=== PATIENT | female | born 1960 | race Caucasian/White ===

== ENCOUNTER → 2017-11-04 | Outpatient (CLI) | payer OTHER ==
[~2017-11-04] MED LIST: BUSP5TAB59 PO; CYCL10TA6 PO; EFF75 PO; FLNIN NAE; GABA-113 PO; PANT40TA PO; SNM/25100 PO; VENL150C56 PO
== END | disposition home or self-care (01) ==
LOC: C.LABPBG 12:20
PROVIDERS: ATTEND Internal Medicine Cardiovascular Disease
DX: Z00.00 Encounter for general adult medical examination without abnormal findings (principal); I34.1 Nonrheumatic mitral (valve) prolapse

== ENCOUNTER → 2017-11-20 | Outpatient (CLI) | payer OTHER ==
[2017-11-20 17:03] LABS: ALBUMIN 3.9 gm/dl (3.4-5.0); TOTAL PROTEIN 6.8 gm/dl (6.4-8.2)
[2017-11-20 17:05] LABS: ALBUMIN 3.8 gm/dl (3.4-5.0); ALT/SGPT 32 U/L (12-78); AST/SGOT 29 U/L (15-37); BLOOD UREA NITROGEN 22 mg/dl (7-18); CALCIUM 8.4 mg/dl (8.5-10.1); CARBON DIOXIDE 30 mmol/L (21-32); CREATININE 0.89 mg/dl (0.60-1.20); GLUCOSE 115 mg/dl (70-99); LIPASE 215 U/L (73-393); POTASSIUM 4.5 mmol/L (3.5-5.1); SODIUM 142 mmol/L (136-145)
[2017-11-20 17:08] LABS: ALKALINE PHOSPHATASE 49 U/L (45-117); TOTAL PROTEIN 6.8 gm/dl (6.4-8.2)
== END | disposition home or self-care (01) ==
LOC: C.LABPBG 14:12
PROVIDERS: ATTEND Dermatology
DX: R63.6 Underweight (principal); R10.84 Generalized abdominal pain; R63.4 Abnormal weight loss; Z92.29 Personal history of other drug therapy

== ENCOUNTER 2018-11-15 20:26 | Inpatient (IN) ==
[2018-11-15] MEDS ORDERED: LEVALBUTEROL HCL 1.25 MG/3 ML NEB NEB STA (21:42)
[2018-11-15] MEDS ORDERED: methylPREDNISolone 125 MG/2 ML VIAL IV STA (21:44)
[2018-11-15 22:17] LABS: iSTAT Creatinine 1.2 mg/dl (0.6-1.3); iSTAT Hemoglobin 9.9 g/dl (12.0-16.0); iSTAT Ionized Calcium 1.02 mmol/l (1.12-1.32); iSTAT Potassium 3.8 mEq/L (3.3-5.0)
[2018-11-15 22:18] LABS: Basophils # (auto) 0.01 K/uL (0-0.2); Basophils % (auto) 0.1 %; Hematocrit (blood only) 30.1 % (37-47); Hemoglobin 9.2 g/dL (12.0-16.0); Immature Granulocytes # (auto) 0.05 K/uL (0.00-0.02); Immature Granulocytes % (auto) 0.4 %; Lymphocytes # (auto) 0.73 K/uL (1.2-3.4); Lymphocytes % (auto) 5.6 %; Mean Corpuscular Hgb Conc 30.6 g/dL (32-36); Mean Corpuscular Volume 78.6 fL (80-100); Mean Platelet Volume 9.5 fL (7.4-10.4); Monocytes # (auto) 0.95 K/uL (0.11-0.59); Monocytes % (auto) 7.2 %; Neutrophils # (auto) 11.38 K/uL (1.4-6.5); Neutrophils % (auto) 86.7 %; Platelet Count 196 K/uL (130-400); RDW Coefficient of Variation 18.4 % (11.5-14.5); RDW Standard Deviation 51.9 fL (36.4-46.3); Red Blood Count 3.83 M/uL (4.2-5.4); White Blood Count 13.12 K/uL (4.8-10.8)
--- NOTE | 2018-11-15 22:34 | XRay Report ---
XR chest 1V portable HISTORY: 58 years-old Female Chest Pain acute atypical chest pain COMPARISON: CTA chest 06/29/2013 TECHNIQUE: Portable AP view of the chest FINDINGS: Cardiac silhouette is enlarged, unchanged. Prior median sternotomy with cardiac valvular prosthesis. There is no pneumothorax. Severe emphysema with chronic interstitial coarsening and hyperinflation. T race left pleural effusion. Patchy alveolar opacities are noted about the left midlung and bilateral lung bases, left greater than right. No overt pulmonary edema. Degenerative changes of the shoulders and spine. IMPRESSION: 1. Patchy bibasilar and left midlung alveolar opacities suggest multifocal pneumonia. Follow-up imagi ng to document resolution is recommended. 2. Emphysema. The above report was generated using voice recognition software. It may contain grammatical, syntax o r spelling errors. Electronically signed by: Harinder Lorenzo M.D. 11/15/2018 10:33 PM
[2018-11-15 22:38] LABS: Alanine Aminotransferase 22 U/L (12-78); Albumin Level 3.1 gm/dl (3.4-5.0); Aspartate Aminotransferase 31 U/L (15-37); BUN Creatinine Ratio 22.6 (10-20); Blood Urea Nitrogen 27 mg/dl (7-18); Calcium 8.3 mg/dl (8.5-10.1); Carbon Dioxide 25 mmol/L (21-32); Chloride 101 mmol/L (98-107); Creatinine Clr Calc Pharmacy 34.4 ml/min; Est GFR (African American) 57.7; Est GFR (Non-African American) 49.8; Glucose 78 mg/dl (70-99); Potassium 3.7 mmol/L (3.5-5.1); Sodium 135 mmol/L (136-145)
[2018-11-15 22:44] LABS: Albumin Globulin Ratio 0.8 (0.9-2); Alkaline Phosphatase 98 U/L (45-117); Bilirubin,Total 0.9 mg/dl (0.2-1); Creatine Kinase 335 U/L (26-192); Creatine Kinase MB 3.1 ng/ml (0.5-3.6); Globulin 3.7 gm/dl (2.5-4.0); Total Protein 6.8 gm/dl (6.4-8.2); Troponin I < 0.015 ng/ml (0-0.045)
[2018-11-15] MEDS ORDERED: PIPERACILL/TAZOBAC CONSULT ACTIVE PRN (23:19)
[2018-11-15] MEDS ORDERED: PIPERACILLIN/TAZOBACTAM 4.5 GM/120 ML BAG IV ONE (23:19)
[2018-11-15] MEDS ORDERED: LEVOFLOXACIN/D5W 750 MG/150 ML BAG IV STA (23:19)
[2018-11-15] MEDS ORDERED: ONDANSETRON INJ 2 MG/ML 2 ML VIAL IV STA (23:23)
[2018-11-15] MEDS ORDERED: OPTIRAY 320 125ml IV PRN (23:37)
[2018-11-15] MEDS: HYDROmorphone INJ 0.5 MG/0.5 ML SYR IV PRN (23:46)
[2018-11-16 00:20] LABS: NT Pro B Type Natriuretic Pept 1319 pg/ml (0-900)
--- NOTE | 2018-11-16 02:20 | History & Physical Report ---
Date of Service November 16, 2018 Assessment & Plan (1) Pneumonia: Afebrile, hemodynamically stable, minimal O2 requirement. CXR suggestive of multifocal PNA -Admit to medical floor -Check influenza -Follow culture results -Ceftriaxone and Azithromycin -Supplemental O2 as needed -Encourage incentive spirometry -Mucinex BID PRN -DuoNebs and Albuterol PRN. Patient may benefit from outpatient PFTs. Smoking cessation counseling -Morphine PRN CW pain Present on Admission?: Yes (2) H/O mitral valve replacement with mechanical valve: Patient on Coumadin. She follows with Dr. Batista -Check INR now and daily -Continue home Coumadin, goal. 2.5 - 3.5 Present on Admission?: Yes (3) Multiple sclerosis: Stable. Patient reports worsening muscle cramps -Treat underlying infection as above -IVF and electrolyte repletion where needed -Continue Baclofen -Outpatient Neurology followup Present on Admission?: Yes (4) Depression: Chronic. Stable -Continue Venlafaxine (5) Irritable bowel syndrome: Chronic. Stable -Continue Bentyl F/E/N - NSS at 80mL/hr x 2 liters. Cr=1.2 from baseline of 0.8. Repeat chemistry in AM. Electrolyte repletion as needed - Ca gluconate x 1 gm. Regular diet as tolerated Ppx - Coumadin for mechanical valve. Continue Ranitidine at home dose Code - Full Dispo - Med Surge History of Present Illness Chief Complaint: Pneumonia Primary Care Provider: Rylie Richardson DO Didi Gant is a 58yo C female with history of COPD, GERD, MS, breast cancer presenting with pneumonia. Patient reports URI symptoms over the last week to include cough productive for yellow/green sputum and shortness of breath. She was seen by her PCP on 09 November and was prescribed Doxycycline, Prednisone and Albuterol. Patient states that her symptoms did not improve. She continues to be febrile, last fever yesterday 101. She is also complaining of severe left sided pain as well as muscle spasms. ER Course: Dilaudid 0.5mg, Xopenex, Levaquin, Solumedrol 125mg, Zofran 4mg, Zosyn Allergies Allergy/AdvReac Type Severity Reaction Status Date / Time No Known Allergies Allergy Verified 11/16/18 01:38 Home Medications Home Medications Medication Instructions Recorded Confirmed Type albuterol sulfate [Ventolin HFA] 2 puff INHALATION QID PRN 11/16/18 11/16/18 History baclofen 10 mg PO BID PRN 11/16/18 11/16/18 History dicyclomine 10 mg PO QID PRN 11/16/18 11/16/18 History gabapentin 100 mg PO HS 11/16/18 11/16/18 History gabapentin 300 mg PO HS 11/16/18 11/16/18 History mirtazapine 15 mg PO DAILY 11/16/18 11/16/18 History oxycodone 5 mg PO TID PRN 11/16/18 11/16/18 History ranitidine HCl 150 mg PO QPM 11/16/18 11/16/18 History venlafaxine 300 mg PO QAM 11/16/18 11/16/18 History warfarin [Jantoven] 4 mg PO 3XWK 11/16/18 11/16/18 History warfarin [Jantoven] 6 mg PO 4XWK 11/16/18 11/16/18 History Past Med/Surg History Medical History Pancreatitis (Chronic) Breast cancer (Resolved) Abdominal pain (Acute) Dehydration (Acute) Intractable nausea and vomiting (Acute) SOB (shortness of breath) (Acute 06/29/13) Fibromyalgia GERD (gastroesophageal reflux disease) Multiple sclerosis Surgical History H/O mastectomy (Resolved) Previous section (Resolved) H/O mitral valve replacement mechanical Family History Other Breast cancer Social History Feels Safe at Home: Yes Smoking Status: Current every day smoker Hx Alcohol Use: No Hx Substance Use: No Review of Systems Review of Systems: All systems reviewed & are unremarkable except as noted in HPI & below Patient complains of muscle spasms Physical Exam Physical Exam: General: pleasant female, appears older than stated age, patient resting comfortably, NAD, non-toxic in appearance, AA&O x 4 Skin: warm, dry, intact, no rashes or lesions, well healed sternotomy scar HEENT: NC/AT, PERRL, EOMI, anicteric sclera, conjunctiva without injection, e xternal ear normal to inspection and nontender, nares patent, moist mucus membranes, dentition intact, no oropharyngeal lesions, neck supple, trachea midline, no LAD, no thyromegaly, no JVD Heart: +S1/S2, regular, no m/r/g, +mechanical click, +tenderness with palpation of left paraspinal musculature and flank Lungs: equal air entry bilaterally, no rales/rhonchi/wheezes Abd: +BS, soft, NT/ND, no masses/organomegaly/ascites Ext: warm, 2+ pulses in UE/LE bilaterally, no clubbing/cyanosis or edema Neuro: nonfocal, patient AA&O x 4, speech intact, no facial droop, moving all extremities on command with equal strength 5/5 Results & Data Vital Signs (Past 12 Hours) Vital Signs Temp Pulse Pulse Resp BP BP Pulse Ox 11/16/18 00:16 95 11/16/18 00:13 88 20 130/74 95 11/15/18 21:55 18 99 11/15/18 20:47 37.5 C 94 H 18 106/60 86 L Laboratory Results Lab Results 11/15/18 11/15/18 11/15/18 Range/Units 21:53 21:53 22:02 WBC 13.12 H (4.8-10.8) K/uL RBC 3.83 L (4.2-5.4) M/uL Hgb 9.2 L (12.0-16.0) g/dL POC Hgb 9.9 L (12.0-16.0) g/dl Hct 30.1 L (37-47) % POC Hct 29 L (37-47) % MCV 78.6 L (80-100) fL MCH 24.0 L (25-34) pg MCHC 30.6 L (32-36) g/dL RDW Std Deviation 51.9 H (36.4-46.3) fL RDW Coeff of Joseph 18.4 H (11.5-14.5) % Plt Count 196 (130-400) K/uL MPV 9.5 (7.4-10.4) fL Immature Gran % (Auto) 0.4 % Neut % (Auto) 86.7 % Lymph % (Auto) 5.6 % [place] % (Auto) 7.2 % Eos % (Auto) 0.0 % Baso % (Auto) 0.1 % Immature Gran # (Auto) 0.05 H (0.00-0.02) K/uL Neut # (Auto) 11.38 H (1.4-6.5) K/uL Lymph # (Auto) 0.73 L (1.2-3.4) K/uL [place] # (Auto) 0.95 H (0.11-0.59) K/uL Eos # (Auto) 0.00 (0-0.5) K/uL Baso # (Auto) 0.01 (0-0.2) K/uL POC Sodium 135 (135-144) mEq/L Sodium 135 L (136-145) mmol/L POC Potassium 3.8 (3.3-5.0) mEq/L Potassium 3.7 (3.5-5.1) mmol/L POC Chloride 99 L (101-112) mEq/L Chloride 101 (98-107) mmol/L Carbon Dioxide 25 (21-32) mmol/L POC Total CO2 24 (24-31) mEq/l Anion Gap 9.0 (3-11) POC Anion Gap 17.0 (16-25) mmol/L POC BUN 26 H (7-18) mg/dl BUN 27 H (7-18) mg/dl Creatinine 1.20 (0.6-1.2) mg/dl POC Creatinine 1.2 (0.6-1.3) mg/dl Est Cr Clr Drug Dosing 34.4 ml/min Est GFR ( Amer) 57.7 Est GFR (Non-Af Amer) 49.8 BUN/Creatinine Ratio 22.6 H (10-20) Glucose 78 (70-99) mg/dl POC Glucose (other) 85 (70-99) mg/dl Calcium 8.3 L (8.5-10.1) mg/dl POC Ioniz Calcium José 1.02 L (1.12-1.32) mmol/l Total Bilirubin 0.9 (0.2-1) mg/dl AST 31 (15-37) U/L ALT 22 (12-78) U/L Alkaline Phosphatase 98 (45-117) U/L Total Creatine Kinase 335 H (26-192) U/L CK-MB (CK-2) 3.1 (0.5-3.6) ng/ml CK/CKMB % Calc 0.9 (0-3.0) Troponin I < 0.015 (0-0.045) ng/ml NT-Pro-B Natriuret Pep 1319 H (0-900) pg/ml Total Protein 6.8 (6.4-8.2) gm/dl Albumin 3.1 L (3.4-5.0) gm/dl Globulin 3.7 (2.5-4.0) gm/dl Albumin/Globulin Ratio 0.8 L (0.9-2) Lipase 144 (73-393) U/L Diagnostic Findings XR chest 1V portable HISTORY: 58 years-old Female Chest Pain acute atypical chest pain COMPARISON: CTA chest 06/29/2013 TECHNIQUE: Portable AP view of the chest FINDINGS: Cardiac silhouette is enlarged, unchanged. Prior median sternotomy with cardiac valvular prosthesis. There is no pneumothorax. Severe emphysema with chronic interstitial coarsening and hyperinflation. Trace left pleural effusion. Patchy alveolar opacities are noted about the left midlung and bilateral lung bases, left greater than right. No overt pulmonary edema. Degenerative changes of the shoulders and spine. IMPRESSION: 1. Patchy bibasilar and left midlung alveolar opacities suggest multifocal pneumonia. Follow-up imaging to document resolution is recommended. 2. Emphysema. The above report was generated using voice recognition software. It may contain grammatical, syntax or spelling errors. Electronically signed by: Harinder Lorenzo M.D. 11/15/2018 10:33 PM Dictated: 11/15/182230 Transcribed: 11/15/182230 Code Status & VTE Plan Code Status FULL CODE VTE Prophylaxis Plan VTE Prophylaxis will be ordered: Yes (1) Pneumonia Laterality: left Lung location: unspecified part of lung Pneumonia type: due to unspecified organism Qualified Code(s): J18.9 - Pneumonia, unspecified organism (2) Irritable bowel syndrome Irritable bowel syndrome type: unspecified Qualified Code(s): K58.9 - Irritable bowel syndrome without diarrhea
[2018-11-16] MEDS ORDERED: HYDROmorphone INJ 0.5 MG/0.5 ML SYR IV STA (02:56)
[2018-11-16] MEDS: HYDROmorphone INJ 0.5 MG/0.5 ML SYR IV PRN (03:02)
[2018-11-16] MEDS ORDERED: DICYCLOMINE HCL 10 MG CAP PO PRN (03:21)
[2018-11-16] MEDS ORDERED: BACLOFEN 10 MG TAB PO PRN (03:21)
[2018-11-16] MEDS ORDERED: ALBUTEROL 0.5% NEB SOLN 2.5 MG/0.5 ML VIAL NEB PRN (03:21)
[2018-11-16] MEDS ORDERED: DOCUSATE SODIUM 100 MG CAP PO PRN (03:21)
[2018-11-16] MEDS ORDERED: CALCIUM GLUCONATE 10% 1,000 MG in SODIUM CHLORIDE 0.9% 50 ML IV ONE (03:45)
[2018-11-16] MEDS ORDERED: AZITHROMYCIN 500 MG in DEXTROSE 5% 250 ML IV ONE (03:45)
[2018-11-16] MEDS: ALBUT/IPRATROP 3MG/0.5MG NEB 3 ML VIAL NEB SCH ×6 (04:10→23:01)
[2018-11-16] MEDS: SODIUM CHLORIDE 0.9% 1000ML 1,000 ML IV SCH ×2 (04:14→17:16)
[2018-11-16] MEDS: OXYCODONE HCL IR 5 MG TAB (IMMEDIATE RELEASE) PO PRN ×4 (04:33→21:52)
[2018-11-16 04:54] LABS: Prothrombin Time > 90.0 Seconds (9.0-12.0)
[2018-11-16 04:59] LABS: Magnesium 1.6 mg/dl (1.8-2.4); Phosphorus 3.1 mg/dl (2.5-4.9)
[2018-11-16 05:02] LABS: INR > 10.4 (0.9-1.1)
[2018-11-16] MEDS: cefTRIAXone SODIUM 1,000 MG in DEXTROSE 5% 50 ML IV SCH (05:54)
--- NOTE | 2018-11-16 06:19 | CT Scan Report ---
CT angio chest PE protocol CT DOSE: 229.40 mGy.cm HISTORY: Dyspnea Chest Pain, eval for PE TECHNIQUE: Multiaxial CT images of the chest were performed following the intravenous administration of contrast to evaluate the pulmonary arteries. Maximal intensity projection images were also obtaine d. A dose lowering technique was utilized adhering to the principles of ALARA. COMPARISON STUDY: 06/29/2013 FINDINGS: Unchanged enlargement of the right thyroid. Mild displacement of the trachea to the left al so unchanged. Moderate office chronic change thoracic aorta with no evidence for aneurysm or dissection. Pulmonary vasculature enhances appropriately. No filling defect. Diffuse parenchymal infiltrative dana nge throughout the left mid and lower lung as well as right middle lobe and to lesser extent right lo wer lobe. IMPRESSION: 1. Study is negative for pulmonary embolus. 2. Diffuse bilateral parenchymal infiltrative change. 3. Moderate emphysematous change. The above report was generated using voice recognition software. It may contain grammatical, syntax or spelling errors. Electronically signed by: Casey Carson M.D. 11/16/2018 6:18 AM
[2018-11-16] MEDS: VENLAFAXINE HCL XR 150 MG CAPXR PO SCH (08:22)
[2018-11-16] MEDS: guaiFENesin 600 MG TABCR PO SCH ×2 (08:22→21:40)
[2018-11-16] MEDS: MoRPHine SULFATE 2 MG/ML CARP IV PRN ×3 (08:22→19:47)
[2018-11-16] MEDS ORDERED: WARFARIN SOD 6 MG TAB PO SCH (16:00)
[2018-11-16] MEDS ORDERED: MoRPHine SULFATE 2 MG/ML CARP IV STA (16:47)
--- NOTE | 2018-11-16 20:44 | History & Physical Bridge Note ---
Date of Service November 16, 2018 History & Physical Bridge Note Pt seen this afternoon initially. States she is having L lower rib/chest pain. States she also has L sided back pain "for years". She has seen neuro, chiro, "everyone" and it is always present. She states that she cannot lie on this part of her back, even at the dentist. She does feel that she is overall better than [employer]. She is not SOB. Her cough is better. She is tired after being in the ED until early this AM. She has been tolerating PO without issue. Pt seemed overall pleased with her current status. Discussed using a heating pad to help with the L lower rib/chest pain that is likely related to the PNA. Pt was happy with this plan. Called by nursing later in the day as pt feels that "no one is taking her pain seriously". Heating pad was unable to be sent up from utility so that has not been applied. Pt was given morphine which she states only lasts about 20-30 minutes. Pt is threatening to leave AMA. I returned to pt's room at that time and pt informs me that she was crying all day due to her pain. She states she has been having pain into her legs all day and that she has so much pain that she cannot even watch television. She states that everyone is labeled an opioid abuser now and so "I can't get my pain treated, even when I am in the hospital". She was offered an additional morphine dose and her PRN baclofen, which she had not had yet today, and she states "I can go home and take 20 baclofen. 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 I can take this IV out and just leave when I want to." Again offered an additional morphine dose plus baclofen plus heating pad. Discussed risks of not continuing with abx and O2. Pt is agreeable to stay "for now".
[2018-11-16] MEDS: NICOTINE 21 MG/24 HR TDSY TD SCH (21:37)
[2018-11-16] MEDS: MoRPHine SULFATE 4 MG/ML 1 ML CARP\\VIAL IV PRN (21:38)
[2018-11-16] MEDS: GABAPENTIN 100 MG CAP PO SCH (21:39)
[2018-11-16] MEDS: MIRTAZAPINE TAB 15 MG TAB PO SCH (21:40)
[2018-11-16] MEDS: GABAPENTIN 300 MG CAP PO SCH (21:40)
--- NOTE | 2018-11-17 01:27 | Emergency Department Note ---
Entered by Dean Turcios acting as a scribe for History of Present Illness General Chief complaint: Illness Stated complaint: ILLNESS, NAUSEA Time Seen by Provider: 11/15/18 21:33 Source: patient History of Present Illness Provider complaint: Respiratory problems Onset (ago): week(s) 2 Location: chest Radiation: non-radiation Pain Consistency: + constant Maximum Pain Intensity: 5 Relieved By: + none Exacerbated By: + none Associated symptoms: + chest pain, + cough and + shortness of breath The patient is a 58 year old female who presents to the Emergency Room with complaints of constant respiratory problems that started about 2 weeks ago. She is currently short of breath and has a cough. She also has some rib/chest pain that is worse when coughing. She was diagnosed with bronchitis 2 weeks ago when the symptoms first began and was prescribed Doxycycline and Prednisone. She has finished both of these medications but her symptoms persist. She is currently on oxygen but states she typically does not wear oxygen at home. Home Medications Home Medications Medication Instructions Recorded Confirmed Type albuterol sulfate [Ventolin HFA] 2 puff INHALATION QID PRN 11/16/18 11/16/18 History baclofen 10 mg PO BID PRN 11/16/18 11/16/18 History dicyclomine 10 mg PO QID PRN 11/16/18 11/16/18 History gabapentin 100 mg PO HS 11/16/18 11/16/18 History gabapentin 300 mg PO HS 11/16/18 11/16/18 History mirtazapine 15 mg PO DAILY 11/16/18 11/16/18 History oxycodone 5 mg PO TID PRN 11/16/18 11/16/18 History ranitidine HCl 150 mg PO QPM 11/16/18 11/16/18 History venlafaxine 300 mg PO QAM 11/16/18 11/16/18 History warfarin [Jantoven] 4 mg PO [id number] 11/16/18 11/16/18 History warfarin [Jantoven] 6 mg PO [id number] 11/16/18 11/16/18 History Allergies Allergy/AdvReac Type Severity Reaction Status Date / Time No Known Allergies Allergy Verified 11/16/18 01:38 Past Med/Surg History Social History Preferred Language: Bolivian Communication Ability: Effective Qa Architect Required: No Beliefs That Will Affect Care: None Current Living Situation: Family Other Information That Helps Us Care for You: No Feels Safe at Home: Yes Safety Concerns: Feels Safe At This Time Smoking Status: Current every day smoker Tobacco Type: cigarettes Do You Dip or Chew Tobacco: No Second Hand Exposure: No Tobacco Cessation Education Requested by Patient: No Hx Alcohol Use: No Hx Substance Use: No Review of Systems See HPI for pertinent positives & negatives. and A total of 10 systems reviewed and were otherwise negative Physical Exam Vital Signs Vital Signs - 24 hr 11/16/18 02:48 11/16/18 03:20 11/16/18 03:47 Temperature 37.8 C H 36.6 C Temperature Source Oral Oral Pulse Rate 78 Pulse Rate [Left Brachial] 83 Pulse Rate [Right Finger] Pulse Rhythm [Left Brachial] Regular Pulse Strength [Left Brachial] Normal Respiratory Rate 18 Respiratory Effort / Characteristics SOB on Exertion Non-Labored Spontaneous Respiratory Depth Normal Normal Respiratory Pattern Regular Regular Blood Pressure 106/75 Blood Pressure [Left Arm] 113/65 Blood Pressure Mean [Left Arm] 81 Blood Pressure Position [Left Arm] Lying Pulse Oximetry 95 90 Oxygen Delivery Method Nasal Cannula Nasal Cannula Nasal Cannula Oxygen Flow Rate 2 3 2 11/16/18 04:10 11/16/18 06:57 11/16/18 07:37 Temperature Temperature Source Pulse Rate Pulse Rate [Left Brachial] Pulse Rate [Right Finger] 65 85 Pulse Rhythm [Left Brachial] Pulse Strength [Left Brachial] Respiratory Rate 18 18 Respiratory Effort / Characteristics Non-Labored Spontaneous Spontaneous Short of Breath Non-Labored Spontaneous Respiratory Depth Normal Respiratory Pattern Regular Blood Pressure Blood Pressure [Left Arm] Blood Pressure Mean [Left Arm] Blood Pressure Position [Left Arm] Pulse Oximetry 96 95 Oxygen Delivery Method Nasal Cannula Nasal Cannula Nasal Cannula Oxygen Flow Rate 3 3 2 11/16/18 07:54 11/16/18 11:28 11/16/18 15:13 Temperature 36.5 C Temperature Source Oral Pulse Rate Pulse Rate [Left Brachial] 85 83 89 Pulse Rate [Right Finger] Pulse Rhythm [Left Brachial] Pulse Strength [Left Brachial] Respiratory Rate 17 18 16 Respiratory Effort / Characteristics Non-Labored Spontaneous Non-Labored Spontaneous Respiratory Depth Respiratory Pattern Blood Pressure Blood Pressure [Left Arm] 98/59 L Blood Pressure Mean [Left Arm] 72 Blood Pressure Position [Left Arm] Lying Pulse Oximetry 95 88 L 92 Oxygen Delivery Method Nasal Cannula Room Air Nasal Cannula Oxygen Flow Rate 3 3 11/16/18 15:48 11/16/18 19:53 11/16/18 22:55 Temperature 37.0 C 37.1 C Temperature Source Oral Oral Pulse Rate Pulse Rate [Left Brachial] 96 H Pulse Rate [Right Finger] 88 93 H Pulse Rhythm [Left Brachial] Pulse Strength [Left Brachial] Respiratory Rate 18 18 18 Respiratory Effort / Characteristics Non-Labored Spontaneous Respiratory Depth Respiratory Pattern Blood Pressure Blood Pressure [Left Arm] 90/54 L 94/58 L Blood Pressure Mean [Left Arm] 66 70 Blood Pressure Position [Left Arm] Lying Lying Pulse Oximetry 92 94 86 L Oxygen Delivery Method Nasal Cannula Nasal Cannula Nasal Cannula Oxygen Flow Rate 2 2 2.5 11/16/18 23:03 11/16/18 23:57 11/17/18 01:20 Temperature Temperature Source Pulse Rate Pulse Rate [Left Brachial] 100 H Pulse Rate [Right Finger] Pulse Rhythm [Left Brachial] Pulse Strength [Left Brachial] Respiratory Rate 14 Respiratory Effort / Characteristics Non-Labored Spontaneous Non-Labored Spontaneous SOB on Exertion Non-Labored Respiratory Depth Normal Normal Respiratory Pattern Regular Regular Blood Pressure Blood Pressure [Left Arm] Blood Pressure Mean [Left Arm] Blood Pressure Position [Left Arm] Pulse Oximetry 88 L Oxygen Delivery Method Nasal Cannula Nasal Cannula Nasal Cannula Oxygen Flow Rate 2 2 2 11/17/18 01:25 Temperature Temperature Source Pulse Rate Pulse Rate [Left Brachial] Pulse Rate [Right Finger] Pulse Rhythm [Left Brachial] Pulse Strength [Left Brachial] Respiratory Rate Respiratory Effort / Characteristics Respiratory Depth Respiratory Pattern Blood Pressure Blood Pressure [Left Arm] Blood Pressure Mean [Left Arm] Blood Pressure Position [Left Arm] Pulse Oximetry 97 Oxygen Delivery Method Nasal Cannula Oxygen Flow Rate 2 GENERAL: Awake, alert, cachectic-appearing, in no distress HENT: Normocephalic, atraumatic. Oropharynx unremarkable. EYES: Normal conjunctiva. Sclera non-icteric. NECK: Supple. No nuchal rigidity. FROM. No masses. RESPIRATORY: Bilateral wheezing present. No rales. Normal respiratory effort. CARDIAC: Normal rate. Normal rhythm. No murmurs. No rubs. Extremities warm and well perfused. Pulses equal. No JVD. CHEST: Tender to the left chest wall. GI: Soft, non-distended. No tenderness to palpation. No rebound or guarding. No masses. RECTAL: Deferred. MUSCULOSKELETAL: Atraumatic. Chest examination reveals no tenderness. The back is symmetrical on inspection without obvious abnormality. There is no CVA tenderness to palpation. No joint edema. LOWER EXTREMITIES: Calves are equal size bilaterally and non-tender. No edema. No discoloration. NEURO: Normal sensorium. No sensory or motor deficits noted. Course 2136: The patient was evaluated in room B12B, and a complete history and physical examination were performed. 2350: I updated the patient and family on results and discussed the treatment plan with them. 0002: I spoke to Dr. Samson [facility] Hospitalist about the patient's case and she is going to accept her for further evaluation. Consultations Consultation #1: I spoke to Dr. Samson [facility] Hospitalist about the patient's case and she is going to accept her for further evaluation. Time: 00:02 Administered Medications Albuterol (Duoneb) 3 ml NEB Q4R [facility] Stop: 12/16/18 03:59 Last Admin: 11/16/18 23:01 Dose: 3 ml Documented by: [id number] Admin: 11/16/18 19:53 Dose: 3 ml Documented by: [id number] Admin: 11/16/18 15:13 Dose: 3 ml Documented by: [id number] Admin: 11/16/18 11:28 Dose: 3 ml Documented by: [id number] Admin: 11/16/18 06:56 Dose: 3 ml Documented by: [id number] Admin: 11/16/18 04:10 Dose: 3 ml Documented by: [id number] Baclofen (Lioresal) 10 mg PO BID PRN PRN Reason: Muscle Spasm Stop: 12/16/18 03:20 Last Admin: 11/16/18 19:22 Dose: 10 mg Documented by: [id number] Gabapentin (Neurontin) 100 mg PO HS [facility] Stop: 12/16/18 20:59 Last Admin: 11/16/18 21:39 Dose: 100 mg Documented by: [id number] Gabapentin (Neurontin) 300 mg PO HS [facility] Stop: 12/16/18 20:59 Last Admin: 11/16/18 21:40 Dose: 300 mg Documented by: [id number] Guaifenesin (Mucinex) 600 mg PO Q12 [facility] Stop: 12/16/18 08:59 Last Admin: 11/16/18 21:40 Dose: 600 mg Documented by: [id number] Admin: 11/16/18 08:22 Dose: 600 mg Documented by: [id number] Sodium Chloride (Nss 1000ml) 1,000 mls @ 80 mls/hr IV .[id number] [facility] Stop: 11/17/18 04:44 Last Admin: 11/16/18 17:16 Dose: 80 mls/hr Documented by: [id number] Infusion: 11/16/18 17:15 Dose: 80 mls/hr Documented by: [id number] Infusion: 11/16/18 06:26 Dose: 80 mls/hr Documented by: [id number] Infusion: 11/16/18 05:55 Dose: 0 mls/hr Documented by: [id number] Admin: 11/16/18 04:14 Dose: 80 mls/hr Documented by: [id number] Ceftriaxone Sodium 1,000 mg/ (Dextrose) 50 mls @ 100 mls/hr IV Q24H [facility] Stop: 11/23/18 05:59 Last Infusion: 11/16/18 06:26 Dose: 0 mls/hr Documented by: [id number] Admin: 11/16/18 05:54 Dose: 100 mls/hr Documented by: [id number] Mirtazapine (Remeron) 15 mg PO HS [facility] Stop: 12/16/18 20:59 Last Admin: 11/16/18 21:40 Dose: 15 mg Documented by: [id number] Morphine Sulfate (Morphine Sulfate) 4 mg IV Q3H PRN PRN Reason: Pain Stop: 11/30/18 03:20 Last Admin: 11/16/18 21:38 Dose: 4 mg Documented by: [id number] Nicotine (Nicoderm Cq) 21 mg TD QAM [facility] Stop: 12/16/18 21:09 Last Admin: 11/16/18 21:37 Dose: 21 mg Documented by: [id number] Oxycodone HCl (Roxicodone Immediate Rel) 5 mg PO TID PRN PRN Reason: Pain Stop: 11/30/18 03:20 Last Admin: 11/16/18 21:52 Dose: 5 mg Documented by: [id number] Admin: 11/16/18 17:15 Dose: 5 mg Documented by: [id number] Admin: 11/16/18 10:23 Dose: 5 mg Documented by: [id number] Admin: 11/16/18 04:33 Dose: 5 mg Documented by: [id number] Ranitidine HCl (Zantac) 150 mg PO QPM [facility] Stop: 12/16/18 20:59 Last Admin: 11/16/18 21:40 Dose: 150 mg Documented by: [id number] Venlafaxine HCl (Effexor Extended Release) 300 mg PO QAM [facility] Stop: 12/16/18 08:59 Last Admin: 11/16/18 08:22 Dose: 300 mg Documented by: [id number] Discontinued Medications Hydromorphone HCl (Dilaudid) 0.5 mg IV Q15M PRN PRN Reason: Pain Stop: 11/29/18 23:22 Last Admin: 11/16/18 03:02 Dose: 0.5 mg Documented by: [id number] Admin: 11/15/18 23:46 Dose: 0.5 mg Documented by: [id number] Hydromorphone HCl (Dilaudid) 0.5 mg IV NOW STA Stop: 11/16/18 02:57 Last Admin: 11/16/18 03:04 Dose: Not Given Documented by: [id number] Levofloxacin/Dextrose (Levaquin/D5w) 750 mg in 150 mls @ 100 mls/hr IV NOW STA Stop: 11/16/18 00:48 Last Infusion: 11/16/18 02:05 Dose: 0 mls/hr Documented by: [id number] Admin: 11/15/18 23:47 Dose: 100 mls/hr Documented by: [id number] Piperacillin Sod/Tazobactam Sod (Zosyn) 4.5 gm in 120 mls @ 240 mls/hr IV NOW ONE Stop: 11/15/18 23:48 Last Infusion: 11/16/18 00:47 Dose: 0 mls/hr Documented by: [id number] Admin: 11/15/18 23:47 Dose: 240 mls/hr Documented by: [id number] Azithromycin 500 mg/ Dextrose 255 mls @ 127.5 mls/hr IV ONE ONE Stop: 11/16/18 05:44 Last Infusion: 11/16/18 06:36 Dose: 0 mls/hr Documented by: [id number] Admin: 11/16/18 04:30 Dose: 127.5 mls/hr Documented by: [id number] Calcium Gluconate 1,000 mg/ (Sodium Chloride) 60 mls @ 240 mls/hr IV ONE ONE Stop: 11/16/18 03:59 Last Infusion: 11/16/18 04:30 Dose: 0 mls/hr Documented by: [id number] Admin: 11/16/18 04:14 Dose: 240 mls/hr Documented by: [id number] Ioversol (Optiray 320 125ml) 125 ml IV ONCE PRN PRN Reason: Interaction Checking Stop: 11/19/18 23:36 Last Admin: 11/15/18 23:37 Dose: 90 ml Documented by: [id number] Levalbuterol HCl (Xopenex 1.25mg/3ml Neb) 1.25 mg NEB NOW STA Stop: 11/15/18 21:43 Last Admin: 11/15/18 21:54 Dose: 1.25 mg Documented by: [id number] Methylprednisolone (Solumedrol) 125 mg IV NOW STA Stop: 11/15/18 21:45 Last Admin: 11/15/18 23:06 Dose: 125 mg Documented by: [id number] Morphine Sulfate (Morphine Sulfate) 2 mg IV Q4H PRN PRN Reason: Pain Stop: 11/30/18 03:20 Last Admin: 11/16/18 19:47 Dose: 2 mg Documented by: [id number] Admin: 11/16/18 13:24 Dose: 2 mg Documented by: [id number] Admin: 11/16/18 08:22 Dose: 2 mg Documented by: [id number] Morphine Sulfate (Morphine Sulfate) 2 mg IV NOW STA Stop: 11/16/18 16:48 Last Admin: 11/16/18 17:15 Dose: 2 mg Documented by: [id number] Ondansetron HCl (Zofran) 4 mg IV NOW STA Stop: 11/15/18 23:24 Last Admin: 11/15/18 23:46 Dose: 4 mg Documented by: [id number] Medical Decision Making Differential Diagnosis Differential diagnoses includes but is not limited to pneumonia, bronchitis, COPD/Asthma exacerbation, pneumothorax, pulmonary embolism, congestive heart failure, acute coronary syndrome Medical Records Attestation: I reviewed the patient's medical records. Home Medications Current Medication List: was personally reviewed by me Laboratory Data Attestation: I reviewed the patient's lab results. Result diagrams: 11/15/18 21:53 11/15/18 21:53 Lab Results 11/15/18 11/15/18 11/15/18 Range/Units 21:53 21:53 22:02 WBC 13.12 H (4.8-10.8) K/uL RBC 3.83 L (4.2-5.4) M/uL Hgb 9.2 L (12.0-16.0) g/dL POC Hgb 9.9 L (12.0-16.0) g/dl Hct 30.1 L (37-47) % POC Hct 29 L (37-47) % MCV 78.6 L (80-100) fL MCH 24.0 L (25-34) pg MCHC 30.6 L (32-36) g/dL RDW Std Deviation 51.9 H (36.4-46.3) fL RDW Coeff of Joseph 18.4 H (11.5-14.5) % Plt Count 196 (130-400) K/uL MPV 9.5 (7.4-10.4) fL Immature Gran % (Auto) 0.4 % Neut % (Auto) 86.7 % Lymph % (Auto) 5.6 % [place] % (Auto) 7.2 % Eos % (Auto) 0.0 % Baso % (Auto) 0.1 % Immature Gran # (Auto) 0.05 H (0.00-0.02) K/uL Neut # (Auto) 11.38 H (1.4-6.5) K/uL Lymph # (Auto) 0.73 L (1.2-3.4) K/uL [place] # (Auto) 0.95 H (0.11-0.59) K/uL Eos # (Auto) 0.00 (0-0.5) K/uL Baso # (Auto) 0.01 (0-0.2) K/uL PT (9.0-12.0) Seconds INR (0.9-1.1) POC Sodium 135 (135-144) mEq/L Sodium 135 L (136-145) mmol/L POC Potassium 3.8 (3.3-5.0) mEq/L Potassium 3.7 (3.5-5.1) mmol/L POC Chloride 99 L (101-112) mEq/L Chloride 101 (98-107) mmol/L Carbon Dioxide 25 (21-32) mmol/L POC Total CO2 24 (24-31) mEq/l Anion Gap 9.0 (3-11) POC Anion Gap 17.0 (16-25) mmol/L POC BUN 26 H (7-18) mg/dl BUN 27 H (7-18) mg/dl Creatinine 1.20 (0.6-1.2) mg/dl POC Creatinine 1.2 (0.6-1.3) mg/dl Est Cr Clr Drug Dosing 34.4 ml/min Est GFR ( Amer) 57.7 Est GFR (Non-Af Amer) 49.8 BUN/Creatinine Ratio 22.6 H (10-20) Glucose 78 (70-99) mg/dl POC Glucose (other) 85 (70-99) mg/dl Calcium 8.3 L (8.5-10.1) mg/dl POC Ioniz Calcium José 1.02 L (1.12-1.32) mmol/l Phosphorus (2.5-4.9) mg/dl Magnesium (1.8-2.4) mg/dl Total Bilirubin 0.9 (0.2-1) mg/dl AST 31 (15-37) U/L ALT 22 (12-78) U/L Alkaline Phosphatase 98 (45-117) U/L Total Creatine Kinase 335 H (26-192) U/L CK-MB (CK-2) 3.1 (0.5-3.6) ng/ml CK/CKMB % Calc 0.9 (0-3.0) Troponin I < 0.015 (0-0.045) ng/ml NT-Pro-B Natriuret Pep 1319 H (0-900) pg/ml Total Protein 6.8 (6.4-8.2) gm/dl Albumin 3.1 L (3.4-5.0) gm/dl Globulin 3.7 (2.5-4.0) gm/dl Albumin/Globulin Ratio 0.8 L (0.9-2) Lipase 144 (73-393) U/L Hepatitis C Ab Screen (Neg) Influenza Type A Ag (Neg) Influenza Type B Ag (Neg) 11/16/18 11/16/18 11/16/18 Range/Units 04:05 04:05 04:10 WBC (4.8-10.8) K/uL RBC (4.2-5.4) M/uL Hgb (12.0-16.0) g/dL POC Hgb (12.0-16.0) g/dl Hct (37-47) % POC Hct (37-47) % MCV (80-100) fL MCH (25-34) pg MCHC (32-36) g/dL RDW Std Deviation (36.4-46.3) fL RDW Coeff of Joseph (11.5-14.5) % Plt Count (130-400) K/uL MPV (7.4-10.4) fL Immature Gran % (Auto) % Neut % (Auto) % Lymph % (Auto) % [place] % (Auto) % Eos % (Auto) % Baso % (Auto) % Immature Gran # (Auto) (0.00-0.02) K/uL Neut # (Auto) (1.4-6.5) K/uL Lymph # (Auto) (1.2-3.4) K/uL [place] # (Auto) (0.11-0.59) K/uL Eos # (Auto) (0-0.5) K/uL Baso # (Auto) (0-0.2) K/uL PT > 90.0 H (9.0-12.0) Seconds INR > 10.4 H* (0.9-1.1) POC Sodium (135-144) mEq/L Sodium (136-145) mmol/L POC Potassium (3.3-5.0) mEq/L Potassium (3.5-5.1) mmol/L POC Chloride (101-112) mEq/L Chloride (98-107) mmol/L Carbon Dioxide (21-32) mmol/L POC Total CO2 (24-31) mEq/l Anion Gap (3-11) POC Anion Gap (16-25) mmol/L POC BUN (7-18) mg/dl BUN (7-18) mg/dl Creatinine (0.6-1.2) mg/dl POC Creatinine (0.6-1.3) mg/dl Est Cr Clr Drug Dosing ml/min Est GFR ( Amer) Est GFR (Non-Af Amer) BUN/Creatinine Ratio (10-20) Glucose (70-99) mg/dl POC Glucose (other) (70-99) mg/dl Calcium (8.5-10.1) mg/dl POC Ioniz Calcium José (1.12-1.32) mmol/l Phosphorus 3.1 (2.5-4.9) mg/dl Magnesium 1.6 L (1.8-2.4) mg/dl Total Bilirubin (0.2-1) mg/dl AST (15-37) U/L ALT (12-78) U/L Alkaline Phosphatase (45-117) U/L Total Creatine Kinase 355 H (26-192) U/L CK-MB (CK-2) (0.5-3.6) ng/ml CK/CKMB % Calc (0-3.0) Troponin I (0-0.045) ng/ml NT-Pro-B Natriuret Pep (0-900) pg/ml Total Protein (6.4-8.2) gm/dl Albumin (3.4-5.0) gm/dl Globulin (2.5-4.0) gm/dl Albumin/Globulin Ratio (0.9-2) Lipase (73-393) U/L Hepatitis C Ab Screen Neg (Neg) Influenza Type A Ag (Neg) Influenza Type B Ag (Neg) 11/16/18 Range/Units 04:15 WBC (4.8-10.8) K/uL RBC (4.2-5.4) M/uL Hgb (12.0-16.0) g/dL POC Hgb (12.0-16.0) g/dl Hct (37-47) % POC Hct (37-47) % MCV (80-100) fL MCH (25-34) pg MCHC (32-36) g/dL RDW Std Deviation (36.4-46.3) fL RDW Coeff of Joseph (11.5-14.5) % Plt Count (130-400) K/uL MPV (7.4-10.4) fL Immature Gran % (Auto) % Neut % (Auto) % Lymph % (Auto) % [place] % (Auto) % Eos % (Auto) % Baso % (Auto) % Immature Gran # (Auto) (0.00-0.02) K/uL Neut # (Auto) (1.4-6.5) K/uL Lymph # (Auto) (1.2-3.4) K/uL [place] # (Auto) (0.11-0.59) K/uL Eos # (Auto) (0-0.5) K/uL Baso # (Auto) (0-0.2) K/uL PT (9.0-12.0) Seconds INR (0.9-1.1) POC Sodium (135-144) mEq/L Sodium (136-145) mmol/L POC Potassium (3.3-5.0) mEq/L Potassium (3.5-5.1) mmol/L POC Chloride (101-112) mEq/L Chloride (98-107) mmol/L Carbon Dioxide (21-32) mmol/L POC Total CO2 (24-31) mEq/l Anion Gap (3-11) POC Anion Gap (16-25) mmol/L POC BUN (7-18) mg/dl BUN (7-18) mg/dl Creatinine (0.6-1.2) mg/dl POC Creatinine (0.6-1.3) mg/dl Est Cr Clr Drug Dosing ml/min Est GFR ( Amer) Est GFR (Non-Af Amer) BUN/Creatinine Ratio (10-20) Glucose (70-99) mg/dl POC Glucose (other) (70-99) mg/dl Calcium (8.5-10.1) mg/dl POC Ioniz Calcium José (1.12-1.32) mmol/l Phosphorus (2.5-4.9) mg/dl Magnesium (1.8-2.4) mg/dl Total Bilirubin (0.2-1) mg/dl AST (15-37) U/L ALT (12-78) U/L Alkaline Phosphatase (45-117) U/L Total Creatine Kinase (26-192) U/L CK-MB (CK-2) (0.5-3.6) ng/ml CK/CKMB % Calc (0-3.0) Troponin I (0-0.045) ng/ml NT-Pro-B Natriuret Pep (0-900) pg/ml Total Protein (6.4-8.2) gm/dl Albumin (3.4-5.0) gm/dl Globulin (2.5-4.0) gm/dl Albumin/Globulin Ratio (0.9-2) Lipase (73-393) U/L Hepatitis C Ab Screen (Neg) Influenza Type A Ag Neg for Influ A (Neg) Influenza Type B Ag Neg for Influ B (Neg) Imaging Data Radiologist's Impression: Radiology results as stated below per my review and the radiologist's interpretation: XR chest 1V portable HISTORY: 58 years-old Female Chest Pain acute atypical chest pain COMPARISON: CTA chest 06/29/2013 TECHNIQUE: Portable AP view of the chest FINDINGS: Cardiac silhouette is enlarged, unchanged. Prior median sternotomy with cardiac valvular prosthesis. There is no pneumothorax. Severe emphysema with chronic interstitial coarsening and hyperinflation. Trace left pleural effusion. Patchy alveolar opacities are noted about the left midlung and bilateral lung bases, left greater than right. No overt pulmonary edema. Degenerative changes of the shoulders and spine. IMPRESSION: 1. Patchy bibasilar and left midlung alveolar opacities suggest multifocal pneumonia. Follow-up imaging to document resolution is recommended. 2. Emphysema. The above report was generated using voice recognition software. It may contain grammatical, syntax or spelling errors. Electronically signed by: Harinder Lorenzo M.D. 11/15/2018 10:33 PM CTA CHEST: Comparison with chest CT dated 06/29/13. Infiltrates involving the right and left lower lobes and inferior lingula. Follow to resolution. Centrilobular emphysema. No PE. No aneurysm or dissection. No cardiomegaly or pericardial effusion. Probably reactive small mediastinal and hilar lymph nodes. 3.9 cm enlarged heterogeneous solid right thyroid nodule. This was also seen on the prior study. Radiologist: Marvin Salgado M.D. Study ready at 23:40 and initial results transmitted at 23:59 ECG Data Attestation: I personally reviewed and interpreted this ECG as follows: Indication: SOB/dyspnea Rate (beats per minute): 90 Rhythm: normal sinus Findings: no ST depression and no ST elevation Blood Pressure Blood Pressure Findings: Normal blood pressure MDM Narrative This is a 58-year-old female who presents emergency department complaining of hypoxia. The patient is not normally on oxygen. Because of this she was sent for a CAT scan of the chest. She does have an elevation in her white blood cell count on the CAT scan is concerning for multifocal pneumonia. Based on the fact that the patient is requiring oxygen and she is tachycardic I do feel she should be admitted to the hospitalist service. Blood cultures were obtained and the patient was started on Zosyn as well as Levaquin. She was given an hour-long breathing treatment here in the emergency department along with Solu-Medrol. Patient was in agreement with the treatment plan. Impression & Plan Pneumonia Discharge Plan Visit Data *Final* Discharge Date/Time: 11/16/18 02:48 Chief Complaint: Illness Stated Complaint: ILLNESS, NAUSEA ED Provider: Jack Dan Discharge Problem: Pneumonia Patient Disposition: Admitted As Inpatient Discharge Instructions Interventions: ED Discharge Assessment Last Done: 11/16/18 02:48 Discharge Problem: Pneumonia Qualifiers: Pneumonia type: due to unspecified organism Laterality: left Lung location: unspecified part of lung Qualified Code(s): J18.9 - Pneumonia, unspecified organism The scribe's documentation has been prepared under my direction and personally reviewed by me in its entirety. I confirm that the note above accurately reflects all work, treatment, procedures, and medical decision making performed by me.
[2018-11-17] MEDS: MoRPHine SULFATE 4 MG/ML 1 ML CARP\\VIAL IV PRN ×3 (03:06→10:34)
[2018-11-17] MEDS: ALBUT/IPRATROP 3MG/0.5MG NEB 3 ML VIAL NEB SCH ×6 (03:26→23:20)
[2018-11-17] MEDS: cefTRIAXone SODIUM 1,000 MG in DEXTROSE 5% 50 ML IV SCH (05:39)
[2018-11-17] MEDS: OXYCODONE HCL IR 5 MG TAB (IMMEDIATE RELEASE) PO PRN ×4 (05:45→21:01)
[2018-11-17 07:05] LABS: Basophils # (auto) 0.01 K/uL (0-0.2); Basophils % (auto) 0.1 %; Eosinophils # (auto) 0.01 K/uL (0-0.5); Eosinophils % (auto) 0.1 %; Hematocrit (blood only) 30.1 % (37-47); Hemoglobin 9.2 g/dL (12.0-16.0); Immature Granulocytes # (auto) 0.09 K/uL (0.00-0.02); Immature Granulocytes % (auto) 0.5 %; Lymphocytes # (auto) 1.44 K/uL (1.2-3.4); Lymphocytes % (auto) 7.4 %; Mean Corpuscular Hgb Conc 30.6 g/dL (32-36); Mean Corpuscular Volume 79.6 fL (80-100); Mean Platelet Volume 9.6 fL (7.4-10.4); Monocytes % (auto) 5.2 %; Neutrophils # (auto) 16.78 K/uL (1.4-6.5); Neutrophils % (auto) 86.7 %; Platelet Count 260 K/uL (130-400); RDW Coefficient of Variation 19.2 % (11.5-14.5); RDW Standard Deviation 54.5 fL (36.4-46.3); Red Blood Count 3.78 M/uL (4.2-5.4); White Blood Count 19.33 K/uL (4.8-10.8)
[2018-11-17 07:26] LABS: BUN Creatinine Ratio 17.7 (10-20); Est GFR (African American) 68.6; Est GFR (Non-African American) 59.2; Potassium 3.9 mmol/L (3.5-5.1)
[2018-11-17] MEDS: guaiFENesin 600 MG TABCR PO SCH ×2 (07:26→21:02)
[2018-11-17] MEDS: VENLAFAXINE HCL XR 150 MG CAPXR PO SCH (07:26)
[2018-11-17] MEDS: NICOTINE 21 MG/24 HR TDSY TD SCH (07:57)
[2018-11-17 10:33] LABS: Prothrombin Time > 90.0 Seconds (9.0-12.0)
[2018-11-17 10:42] LABS: INR > 10.4 (0.9-1.1)
[2018-11-17] MEDS ORDERED: PHYTONADIONE 5 MG TAB PO STA (11:04)
[2018-11-17] MEDS ORDERED: PHYTONADIONE PED 2 MG, ORA-SWEET SYRUP 2.25 ML, ORA-PLUS SUSP VEHICLE 2.25 ML, BARCODE ... PO ONE (11:30)
[2018-11-17] MEDS ORDERED: MAGNESIUM SULFATE / D5W 1 GM/100 ML BAG IV ONE (11:30)
[2018-11-17] MEDS ORDERED: WARFARIN SOD 4 MG TAB PO SCH (16:00)
[2018-11-17] MEDS: methylPREDNISolone 40 MG in SYRINGE 0 ML IV SCH (18:04)
[2018-11-17] MEDS: CEROVITE ADV FORMULA TAB PO SCH (18:04)
[2018-11-17] MEDS: THIAMINE HCL 100 MG TAB PO SCH (21:02)
[2018-11-17] MEDS: GABAPENTIN 100 MG CAP PO SCH (21:03)
[2018-11-17] MEDS: MIRTAZAPINE TAB 15 MG TAB PO SCH (21:03)
[2018-11-17] MEDS: GABAPENTIN 300 MG CAP PO SCH (21:04)
[2018-11-17 21:31] LABS: Allen Test Pos (Pos); HCO3 ABG 24 mmol/L (19-24); Oxygen Saturation ABG 90.6 % (90-95); PCO2 ABG 39 mmHg (35-46); PO2 ABG 64 mm/Hg (80-95); pH ABG 7.41 (7.35-7.45)
--- NOTE | 2018-11-17 21:37 | Hospitalist Progress Note ---
Date of Service November 17, 2018 Assessment & Plan (1) Acute respiratory failure with hypoxia: 2nd to b/l pneumonia and acute bronchitis. Completed a full course of doxcycline prior to admission along with 7+ days of prednisone. Will NOT restart any atypical coverage at this time. Cont on rocephin. ADD steroids IV. Cont nebs, supportive care, pulmonary toilet. Present on Admission?: Yes (2) Pneumonia: b/l on imaging. continue rocephin; low threshold for broadening her coverage if any worsening. needs better pulmonary toilet. adding steroids due to significant bronchitis component. cont nebs. in light of advanced malnutrition consider HIV testing. Present on Admission?: Yes (3) H/O mitral valve replacement with mechanical valve: Patient on Coumadin. She follows with Dr. Batista INR markedly supratherapeutic today much like yesterday. No obvious bleeding. However, given the high INR -- give vitamin K 2mg PO X 1. repeat INR am. (4) Supratherapeutic INR: see discussion above in "mitral valve replacement" (5) Multiple sclerosis: History of such, but not on medication for it. Reports muscle cramps at night-time but this may be due to her severe Fe deficiency and not from the MS. Follow carefully for any MS flare. (6) Depression: Continue Venlafaxine (7) Irritable bowel syndrome: no issues at this time (8) Iron deficiency anemia: severe. Ferritin level <10 just 1 week ago. needs endoscopic w/u for this once pulmonary issues have resolved. probably a few weeks post-discharge. start ferrous sulfate supplementation; consider IV venofer. (9) Chronic pain syndrome: PDMP verifies daily use of narcotics. reason?? allow oxycodone prn as this is what she takes at home. (10) Severe protein-calorie malnutrition: add MVI add boost add thiamine highly concerning for underlying malignancy given her chronic tobacco usage (11) DVT prophylaxis: add heparin 5000 BID tomorrow Subjective patient's main complaint during my visit was that of chest wall discomfort/pain from coughing. she asked several times "What can you do to help me with my pain?" she complained of difficulty taking large breaths, anorexia, cough (nonproductive), and dyspnea. she was not forthright with how frequently she uses pain meds outside of the hospital (PDMP shows monthly prescriptions either for oxycodone or hydrocodone). she also receives ritalin per the PDMP. when I asked her why she uses pain meds she was quite vague. tele stable overnight. Review of Systems Constitutional: + fatigue, + anorexia and + weight loss (4 pounds recently ); no fever and no chills Respiratory: + cough, + chest congestion, + dyspnea and + dyspnea on exertion; no hemoptysis and no sputum production Cardiovascular: as per Subjective / HPI and + chest pain; no orthopnea, no paroxysmal nocturnal dyspnea and no edema Gastrointestinal: no abdominal pain, no nausea and no vomiting Physical Exam Constitutional: + ill appearing and + cachectic; + not well developed, + not well nourished, no acute distress and no altered mental status ENMT: Mouth: + dentition abnormality (poor dentition) Respiratory: no labored breathing, no retractions and does not use accessory muscles Auscultation: + rhonchi and + wheezes Cardiovascular: Rate/Rhythm: regular rate and regular rhythm Heart Sounds: normal S1 and normal S2 (mechanical valve closure sound); no murmur Vessels: posterior tibial pulses present and dorsalis pedis pulses present Gastrointestinal (Abdomen): normal bowel sounds, soft, nontender, no hepatosplenomegaly Psychiatric: A+Ox3, euthymic affect Results & Data Vital Signs (Past 12 Hours) Vital Signs Temp Pulse Pulse Resp BP Pulse Ox 11/17/18 20:51 98 H 16 91 11/17/18 19:37 18 85 L 11/17/18 15:19 89 16 95 11/17/18 14:59 37.6 C H 111 H 21 95/60 L 90 11/17/18 11:19 107 H 16 Laboratory Results Laboratory Results - last 24 hr 11/17/18 11/17/18 11/17/18 06:35 06:35 06:35 WBC 19.33 H RBC 3.78 L Hgb 9.2 L Hct 30.1 L MCV 79.6 L MCH 24.3 L MCHC 30.6 L RDW Std Deviation 54.5 H RDW Coeff of Joseph 19.2 H Plt Count 260 MPV 9.6 Immature Gran % (Auto) 0.5 Neut % (Auto) 86.7 Lymph % (Auto) 7.4 [place] % (Auto) 5.2 Eos % (Auto) 0.1 Baso % (Auto) 0.1 Immature Gran # (Auto) 0.09 H Neut # (Auto) 16.78 H Lymph # (Auto) 1.44 [place] # (Auto) 1.00 H Eos # (Auto) 0.01 Baso # (Auto) 0.01 PT INR ABG pH ABG pCO2 ABG pO2 ABG HCO3 ABG O2 Saturation ABG Base Excess [place]asper Test Barometric Pressure Oxygen Given Sodium 138 Potassium 3.9 Chloride 109 H Carbon Dioxide 24 Anion Gap 5.0 BUN 18 Creatinine 1.04 Est Cr Clr Drug Dosing 39.0 Est GFR ( Amer) 68.6 Est GFR (Non-Af Amer) 59.2 BUN/Creatinine Ratio 17.7 Glucose 109 H Calcium 8.0 L Magnesium 1.7 L 11/17/18 11/17/18 10:00 21:17 WBC RBC Hgb Hct MCV MCH MCHC RDW Std Deviation RDW Coeff of Joseph Plt Count MPV Immature Gran % (Auto) Neut % (Auto) Lymph % (Auto) [place] % (Auto) Eos % (Auto) Baso % (Auto) Immature Gran # (Auto) Neut # (Auto) Lymph # (Auto) [place] # (Auto) Eos # (Auto) Baso # (Auto) PT > 90.0 H INR > 10.4 H* ABG pH 7.41 ABG pCO2 39 ABG pO2 64 L ABG HCO3 24 ABG O2 Saturation 90.6 ABG Base Excess -0.3 [place]asper Test Pos Barometric Pressure 736.5 Oxygen Given 15 Sodium Potassium Chloride Carbon Dioxide Anion Gap BUN Creatinine Est Cr Clr Drug Dosing Est GFR ( Amer) Est GFR (Non-Af Amer) BUN/Creatinine Ratio Glucose Calcium Magnesium (1) Pneumonia Laterality: left Lung location: unspecified part of lung Pneumonia type: due to unspecified organism Qualified Code(s): J18.9 - Pneumonia, unspecified organism (2) Depression Depression Type: other depression Qualified Code(s): F32.89 - Other specified depressive episodes (3) Irritable bowel syndrome Irritable bowel syndrome type: unspecified Qualified Code(s): K58.9 - Irritable bowel syndrome without diarrhea (4) Iron deficiency anemia Iron deficiency anemia type: unspecified iron deficiency Qualified Code(s): D50.9 - Iron deficiency anemia, unspecified
--- NOTE | 2018-11-17 21:53 | Progress Note ---
Date of Service Received a page that the patient November 17, 2018 Received page that the patient had an increased oxygen requirement, going from 3 L nasal cannula to 15 L via oxymask over about a 30-minute period of time. Saw patient at bedside. She states that she has had continued slight worsening of her breathing throughout the day. She denies any overt shortness of breath or chest pain at present. She says she does have baseline pain that the oxycodone is helping with. Exam: Afebrile, borderline but regular tachycardia, no tachypnea or accessory muscle use. Some congestion in the bilateral lower vivar without rales. No present cough. No difficulty with walking to and from the bathroom. Portable chest x-ray shows increased alveolar opacities compared to 2 days ago. Formal read pending. ABG noted pO2 of 64 on 15 L oximask with pH of 7.41. Plan: Will place on BiPAP with a goal of SPO2 between 90 to 96%. Titrate back to oximask as soon as possible. Harinder Valencia, PGY2 Overnight call Results & Data Vital Signs (Past 12 Hours) Vital Signs Temp Pulse Pulse Resp BP Pulse Ox 11/17/18 20:51 98 H 16 91 11/17/18 19:37 18 85 L 11/17/18 15:19 89 16 95 11/17/18 14:59 37.6 C H 111 H 21 95/60 L 90 11/17/18 11:19 107 H 16
--- NOTE | 2018-11-17 22:25 | XRay Report ---
SINGLE VIEW CHEST CLINICAL HISTORY: Hypoxia. FINDINGS: An AP, portable, upright chest radiograph is compared to study dated chest x-ray and chest CT dated 11/15/2018. The examination is degraded by portable technique and patient rotation. Epicardial pacing leads are noted. The patient is status post midline sternotomy and cardiac valve surgery. The heart is enlarged there is atherosclerotic calcification of the thoracic aorta. Advanced emphysema a nd chronic interstitial thickening are similar to previous. There is extensive bilateral patchy airsp giovanna consolidation seen in the mid to lower lungs bilaterally. This has significantly progressed from 11/15/2018. There are small pleural effusions. No pneumothorax is seen. The skeletal structures are ost eopenic. The bony thorax is grossly intact. IMPRESSION: 1. Cardiomegaly and emphysema. 2. There is extensive bilateral patchy airspace consolidation which has significantly progressed from 11/15/2018. The appearance is typical for pneumonia/aspiration pneumonitis. Clinical correlation will be required and radiographic follow-up to resolution is recommended. 3. Small pleural effusions. Electronically signed by: Alan Eden M.D. 11/17/2018 10:23 PM
[2018-11-17] MEDS ORDERED: DOXYCYCLINE HYCLATE 100 MG CAP PO SCH (23:00)
[2018-11-17] MEDS ORDERED: PIPERACILL/TAZOBAC CONSULT ACTIVE PRN (23:01)
[2018-11-17] MEDS ORDERED: VANCOMYCIN CONSULT ACTIVE PRN (23:01)
[2018-11-17] MEDS ORDERED: PIPERACILLIN/TAZOBACTAM 3.375 GM in DEXTROSE 5% 100 ML IV ONE (23:30)
[2018-11-17] MEDS ORDERED: VANCOMYCIN HCL 1,000 MG in SODIUM CHLORIDE 0.9% 250 ML IV ONE (23:30)
[2018-11-18] MEDS: ALBUT/IPRATROP 3MG/0.5MG NEB 3 ML VIAL NEB SCH ×6 (03:47→23:19)
[2018-11-18] MEDS: PIPERACILLIN/TAZOBACTAM 3.375 GM in DEXTROSE 5% 100 ML IV SCH ×3 (04:18→19:38)
[2018-11-18] MEDS: methylPREDNISolone 40 MG in SYRINGE 0 ML IV SCH ×2 (04:18→16:49)
[2018-11-18 07:54] LABS: Hematocrit (blood only) 24.8 % (37-47); Hemoglobin 7.8 g/dL (12.0-16.0); Mean Corpuscular Hgb Conc 31.5 g/dL (32-36); Mean Corpuscular Volume 77.3 fL (80-100); Mean Platelet Volume 9.3 fL (7.4-10.4); Platelet Count 189 K/uL (130-400); RDW Coefficient of Variation 18.9 % (11.5-14.5); RDW Standard Deviation 53.2 fL (36.4-46.3); Red Blood Count 3.21 M/uL (4.2-5.4); White Blood Count 6.98 K/uL (4.8-10.8)
[2018-11-18 07:59] LABS: Hypochromasia Present; Immature Granulocytes # (auto) 0.03 K/uL (0.00-0.02); Immature Granulocytes % (auto) 0.4 %; Lymphocytes # (auto) 0.32 K/uL (1.2-3.4); Lymphocytes % (auto) 4.6 %; Monocytes # (auto) 0.25 K/uL (0.11-0.59); Monocytes % (auto) 3.6 %; Neutrophils # (auto) 6.38 K/uL (1.4-6.5); Neutrophils % (auto) 91.4 %; Polychromasia 1+; Target Cells 1+
[2018-11-18] MEDS: THIAMINE HCL 100 MG TAB PO SCH ×2 (09:05→21:10)
[2018-11-18] MEDS: VENLAFAXINE HCL XR 150 MG CAPXR PO SCH (09:05)
[2018-11-18] MEDS: NICOTINE 21 MG/24 HR TDSY TD SCH (09:05)
[2018-11-18] MEDS: guaiFENesin 600 MG TABCR PO SCH ×2 (09:05→21:09)
[2018-11-18] MEDS: FERROUS SULFATE 325 MG TAB PO SCH ×2 (09:05→16:50)
[2018-11-18 09:11] LABS: BUN Creatinine Ratio 22.5 (10-20); Calcium 7.9 mg/dl (8.5-10.1); Creatinine Clr Calc Pharmacy 57.1 ml/min; Est GFR (African American) 108.8; Est GFR (Non-African American) 93.9; Magnesium 1.8 mg/dl (1.8-2.4); Phosphorus 3.2 mg/dl (2.5-4.9)
[2018-11-18] MEDS ORDERED: SODIUM CHLORIDE 0.9% 250 ML IV PRN (09:22)
--- NOTE | 2018-11-18 09:55 | Pharmacy Report ---
Pharmacy Abx Initial Consult - Date of Service November 18, 2018 - Pharmacy Dosing Scope Date of Consult: 11/18 Consultation requested by: Dr. Valencia Pharmacy is consulted to initiate vancomycin and Zosyn IV dosing therapy, order appropriate labs and adjust drug dose/frequency. - Subjective The patient is a 58 year old F admitted on 11/16/18 02:09. - Objective Height: 5 ft 4 in Weight: 41.9 kg Vital Signs (Past 12hrs): Vital Signs Temp Pulse Pulse Pulse Resp BP BP 11/18/18 07:37 37.0 C 78 20 102/62 11/18/18 07:24 71 71 18 11/18/18 03:49 77 17 11/18/18 03:48 75 18 11/17/18 23:21 36.5 C 102 H 24 108/71 11/17/18 23:20 87 18 11/17/18 22:40 80 25 H Pulse Ox 11/18/18 07:37 96 11/18/18 07:24 95 11/18/18 03:49 96 11/18/18 03:48 96 11/17/18 23:21 92 11/17/18 23:20 96 11/17/18 22:40 93 Lab Results (24hrs): Laboratory Tests (24 Hours) 11/18/18 11/18/18 07:10 07:10 WBC 6.98 Neut # (Auto) 6.38 Creatinine 0.71 D Est Cr Clr Drug Dosing 57.1 - Risk Factors for Resistance * Antimicrobial use within the last 90 days : Doxycycline - Assessment & Plan Assessment 58 year old F admitted on 11/16 for pneumonia w/ bronchitis. She received a full course of doxycycline PNEUMATIC TUBE FITTER so was continued only on Rocephin from 11/16- 11/18. Overnight, patient had increased oxygen requirements and CXR appeared to be worsened so patient was transitioned to Zosyn and vancomycin. SCr has been stable. MRSA swab currently pending. Plan Vancomycin IV * Estimated PK Parameters: Vd 0.7 L/kg, Dennis 0.05 hr-1, t1/2 13.9 hr * Loading dose: 1000 mg (25 mg/kg) * Maintenance dose: 750 mg IV (18 mg/kg) every 18 hours * Goal trough level for pneumonia : 15 to 20 mcg/mL * Trough level NOT yet ordered until MRSA swab is resulted. If positive and vanc will be continued, would recommend obtaining prior to 3rd or 4th dose. May want to obtain earlier due to low body weight and possible difference from population kinetics. Piperacillin/tazobactam * 3.375 g bolus administered over 30 minutes, then 3.375 g IV extended infusion every 8 hours for CrCl greater than 20 mL/min Pharmacy will continue to follow and will adjust dose/frequency as necessary. Thank you.
[2018-11-18 09:57] LABS: Hematocrit (blood only) 26.3 % (37-47); Hemoglobin 8.2 g/dL (12.0-16.0)
[2018-11-18 10:04] LABS: INR 1.8 (0.9-1.1); Prothrombin Time 17.4 Seconds (9.0-12.0)
[2018-11-18] MEDS: OXYCODONE HCL IR 5 MG TAB (IMMEDIATE RELEASE) PO PRN ×2 (12:40→21:06)
[2018-11-18] MEDS ORDERED: VANCOMYCIN HCL 750 MG in SODIUM CHLORIDE 0.9% 250 ML IV SCH (18:00)
--- NOTE | 2018-11-18 20:39 | Hospitalist Progress Note ---
Date of Service November 18, 2018 Assessment & Plan (1) Acute respiratory failure with hypoxia: 2nd to b/l pneumonia and acute bronchitis. She then worsened last evening - mucous plugging? Aspiration event? CXR last night clearly worse than previous imaging. Completed a full course of doxcycline prior to admission along with 7+ days of prednisone. Will NOT restart any atypical coverage at this time. Rocephin was broadened to zosyn/vanco yesterday evening with her clinical worsening - reasonable to stop vanco IV since MRSA swab is negative. Cont nebs, supportive care, pulmonary toilet. Suspect mod-severe undiagnosed COPD - will add advair 1 puff BID. Needs pulmonary follow-up post-discharge with PFTs. She reports having had PFTs in the past but I cannot find such in old [email or web address] nor [facility]. Plan for repeat CXR in am. (2) Pneumonia: b/l on imaging. clinically worsened overnight. see discussion above in "acute resp failure." abx broadened. cont nebs. cont IV steroids. pulmonary toilet. consider pulmonary consultation if she worsens further. (3) COPD exacerbation: Suspect she has undiagnosed COPD. It is probably moderate at minimum. Now with concomitant exacerbation. Steroids, nebs, abx, pulmonary toilet. Adding advair. Will need PFTs post-discharge. Would continue HS BIPAP. (4) H/O mitral valve replacement with mechanical valve: Patient on Coumadin. She follows with Dr. Batista INR was markedly supratherapeutic (10+) on first 2 days of this hospital stay. s/p vitamin K 2mg PO X 1 on 11/17/18. INR today 1.8. Resume coumadin with 6mg po x 1. Repeat INR in am. If levels drop lower then consider bridge. (5) Supratherapeutic INR: see discussion above in "mitral valve replacement" (6) Multiple sclerosis: History of such, but not on medication for it. Reports muscle cramps at night-time but this may be due to her severe Fe deficiency and not from the MS. Follow carefully for any MS flare. Records suggest stable MRIs over the years and relapsing-remitting subtype. (7) Depression: Continue Venlafaxine Continue remeron (8) Irritable bowel syndrome: no issues at this time (9) Iron deficiency anemia: severe. Ferritin level <10 just 1 week ago. Ferritin level in the early 1999s also low. needs outpatient endoscopic w/u for this once pulmonary issues have resolved. ferrous sulfate supplementation 325mg BID; consider IV venofer. patient quite thin - could she have undiagnosed celiac disease? consider TTGs to be complete. (10) Chronic pain syndrome: PDMP verifies daily use of narcotics. allow oxycodone prn. pt's daughters state it is for "MS pain", post-shingles pain, etc. (11) Severe protein-calorie malnutrition: MVI, boost, thiamine highly concerning for underlying malignancy given her chronic tobacco usage (12) DVT prophylaxis: INR 1.8 today - coumadin resumed Subjective last evening the patient recalls drinking water because she was very thirsty. she remembers drinking "too much" and that some of it went down her trachea. some time later last night her O2 requirement went up dramatically (had been 2 liters, then yessy to 10 L). she ultimately was placed on BIPAP and remained on this all night. during my rounds she is on oxymask and had NO distress. able to carry on an entire conversation. states she "feels better" today with improved appetite. she does state that for about 1 month she has seen "dark" stools but didn't think much of it. she was aware of her Fe Deficiency as her PCP told her this recently. she can't recall ever had a colonoscopy; she did have EGD in 2013 per the EMR. 2 daughters were at bedside -- they had numerous questions. they confirm their mother has "always been thin" but she has lost some weight recently. they confirm their mother's use of narcotics for chronic pain related to post- shingles and her MS? no back or neck pain to their knowledge. she does not drink etoh or use recreational drugs. Review of Systems Constitutional: + fatigue, + anorexia and + weight loss; no fever and no chills Respiratory: + cough, + chest congestion, + dyspnea and + dyspnea on exertion; no hemoptysis and no sputum production Cardiovascular: + chest pain; no orthopnea, no paroxysmal nocturnal dyspnea and no edema Gastrointestinal: + constipation; no abdominal pain, no nausea, no vomiting, no diarrhea/loose stools and no blood in stools Physical Exam Constitutional: + ill appearing and + cachectic; + not well developed, + not well nourished, no acute distress and no altered mental status ENMT: Mouth: + dentition abnormality (poor dentition) Respiratory: no retractions and does not use accessory muscles Auscultation: + diminished lung sounds, + crackles (fine, b/l), + rhonchi and + wheezes (improved today) Cardiovascular: Rate/Rhythm: regular rate and regular rhythm Heart Sounds: normal S1 and normal S2 (mechanical valve closure sound); no murmur Vessels: posterior tibial pulses present and dorsalis pedis pulses present Gastrointestinal (Abdomen): normal bowel sounds, soft, nontender, no hepatosplenomegaly Psychiatric: A+Ox3, euthymic affect Results & Data Vital Signs (Past 12 Hours) Vital Signs Temp Pulse Pulse Resp BP Pulse Ox 11/18/18 19:34 81 20 96 11/18/18 16:28 71 18 99 11/18/18 13:49 36.7 C 75 20 97/64 L 92 11/18/18 11:21 79 16 94 Laboratory Results Laboratory Results - last 24 hr 11/17/18 11/18/18 11/18/18 21:17 07:10 07:10 WBC 6.98 RBC 3.21 L Hgb 7.8 L Hct 24.8 L MCV 77.3 L MCH 24.3 L MCHC 31.5 L RDW Std Deviation 53.2 H RDW Coeff of Joseph 18.9 H Plt Count 189 MPV 9.3 Immature Gran % (Auto) 0.4 Neut % (Auto) 91.4 Lymph % (Auto) 4.6 [place] % (Auto) 3.6 Eos % (Auto) 0.0 Baso % (Auto) 0.0 Immature Gran # (Auto) 0.03 H Neut # (Auto) 6.38 Lymph # (Auto) 0.32 L [place] # (Auto) 0.25 Eos # (Auto) 0.00 Baso # (Auto) 0.00 Polychromasia 1+ Hypochromasia Present Target Cells 1+ PT INR ABG pH 7.41 ABG pCO2 39 ABG pO2 64 L ABG HCO3 24 ABG O2 Saturation 90.6 ABG Base Excess -0.3 [place] Test Pos Barometric Pressure 736.5 Oxygen Given 15 Sodium 138 Potassium 4.0 Chloride 107 Carbon Dioxide 28 Anion Gap 3.0 BUN 16 Creatinine 0.71 D Est Cr Clr Drug Dosing 57.1 Est GFR ( Amer) 108.8 Est GFR (Non-Af Amer) 93.9 BUN/Creatinine Ratio 22.5 H Glucose 126 H Calcium 7.9 L Phosphorus 3.2 Magnesium 1.8 Nasal Screen MRSA (PCR) Blood Type Antibody Screen Antibody Identification Antigen Identification Crossmatch 11/18/18 11/18/18 11/18/18 09:33 09:33 09:33 WBC RBC Hgb 8.2 L Hct 26.3 L MCV MCH MCHC RDW Std Deviation RDW Coeff of Joseph Plt Count MPV Immature Gran % (Auto) Neut % (Auto) Lymph % (Auto) [place] % (Auto) Eos % (Auto) Baso % (Auto) Immature Gran # (Auto) Neut # (Auto) Lymph # (Auto) [place] # (Auto) Eos # (Auto) Baso # (Auto) Polychromasia Hypochromasia Target Cells PT 17.4 H INR 1.8 H ABG pH ABG pCO2 ABG pO2 ABG HCO3 ABG O2 Saturation ABG Base Excess [place] Test Barometric Pressure Oxygen Given Sodium Potassium Chloride Carbon Dioxide Anion Gap BUN Creatinine Est Cr Clr Drug Dosing Est GFR ( Amer) Est GFR (Non-Af Amer) BUN/Creatinine Ratio Glucose Calcium Phosphorus Magnesium Nasal Screen MRSA (PCR) Blood Type A Positive Antibody Screen POSITIVE A Antibody Identification Anti-K Antigen Identification K Antigen - NEGATIVE Crossmatch See Detail 11/18/18 Unknown WBC RBC Hgb Hct MCV MCH MCHC RDW Std Deviation RDW Coeff of Joseph Plt Count MPV Immature Gran % (Auto) Neut % (Auto) Lymph % (Auto) [place] % (Auto) Eos % (Auto) Baso % (Auto) Immature Gran # (Auto) Neut # (Auto) Lymph # (Auto) [place] # (Auto) Eos # (Auto) Baso # (Auto) Polychromasia Hypochromasia Target Cells PT INR ABG pH ABG pCO2 ABG pO2 ABG HCO3 ABG O2 Saturation ABG Base Excess [place] Test Barometric Pressure Oxygen Given Sodium Potassium Chloride Carbon Dioxide Anion Gap BUN Creatinine Est Cr Clr Drug Dosing Est GFR ( Amer) Est GFR (Non-Af Amer) BUN/Creatinine Ratio Glucose Calcium Phosphorus Magnesium Nasal Screen MRSA (PCR) Negative Blood Type Antibody Screen Antibody Identification Antigen Identification Crossmatch (1) Pneumonia Laterality: left Lung location: unspecified part of lung Pneumonia type: due to unspecified organism Qualified Code(s): J18.9 - Pneumonia, unspecified organism (2) Depression Depression Type: other depression Qualified Code(s): F32.89 - Other specified depressive episodes (3) Irritable bowel syndrome Irritable bowel syndrome type: unspecified Qualified Code(s): K58.9 - Irritable bowel syndrome without diarrhea (4) Iron deficiency anemia Iron deficiency anemia type: unspecified iron deficiency Qualified Code(s): D50.9 - Iron deficiency anemia, unspecified
[2018-11-18] MEDS ORDERED: WARFARIN SOD 6 MG TAB PO ONE (21:00)
[2018-11-18] MEDS: GABAPENTIN 100 MG CAP PO SCH (21:08)
[2018-11-18] MEDS: GABAPENTIN 300 MG CAP PO SCH (21:10)
[2018-11-18] MEDS: MIRTAZAPINE TAB 15 MG TAB PO SCH (21:11)
[2018-11-18] MEDS: FLUTICASONE/SALMETEROL 250/50 (ADVAIR) 14 PUFF/1 INHALER INH SCH (22:00)
[2018-11-19] MEDS: ALBUT/IPRATROP 3MG/0.5MG NEB 3 ML VIAL NEB SCH ×6 (03:14→23:08)
[2018-11-19] MEDS: methylPREDNISolone 40 MG in SYRINGE 0 ML IV SCH ×2 (04:08→15:47)
[2018-11-19] MEDS: PIPERACILLIN/TAZOBACTAM 3.375 GM in DEXTROSE 5% 100 ML IV SCH ×3 (04:08→20:20)
[2018-11-19 06:00] LABS: Hematocrit (blood only) 23.2 % (37-47); Hemoglobin 7.4 g/dL (12.0-16.0); Mean Corpuscular Hgb Conc 31.9 g/dL (32-36); Mean Corpuscular Volume 77.6 fL (80-100); Mean Platelet Volume 9.2 fL (7.4-10.4); Platelet Count 224 K/uL (130-400); RDW Coefficient of Variation 19.1 % (11.5-14.5); RDW Standard Deviation 53.5 fL (36.4-46.3); Red Blood Count 2.99 M/uL (4.2-5.4); White Blood Count 7.99 K/uL (4.8-10.8)
[2018-11-19 06:13] LABS: INR 1.5 (0.9-1.1); Prothrombin Time 15.3 Seconds (9.0-12.0)
[2018-11-19 06:33] LABS: Calcium 8.2 mg/dl (8.5-10.1); Creatinine Clr Calc Pharmacy 54.1 ml/min; Est GFR (African American) 101.8; Est GFR (Non-African American) 87.9; Potassium 3.7 mmol/L (3.5-5.1)
[2018-11-19] MEDS: FERROUS SULFATE 325 MG TAB PO SCH ×2 (08:54→15:47)
[2018-11-19] MEDS: FLUTICASONE/SALMETEROL 250/50 (ADVAIR) 14 PUFF/1 INHALER INH SCH ×2 (08:54→20:20)
[2018-11-19] MEDS: NICOTINE 21 MG/24 HR TDSY TD SCH (08:55)
[2018-11-19] MEDS: THIAMINE HCL 100 MG TAB PO SCH ×2 (08:55→20:20)
[2018-11-19] MEDS: guaiFENesin 600 MG TABCR PO SCH ×2 (08:55→20:20)
[2018-11-19] MEDS: VENLAFAXINE HCL XR 150 MG CAPXR PO SCH (08:55)
[2018-11-19] MEDS: OXYCODONE HCL IR 5 MG TAB (IMMEDIATE RELEASE) PO PRN ×3 (08:55→17:49)
--- NOTE | 2018-11-19 11:10 | XRay Report ---
XR chest 2V routine HISTORY: 58 years-old Female b/l pneumonia acute shortness of breath with pneumonia COMPARISON: Chest radiograph 11/17/2018, CTA chest 11/15/2018 TECHNIQUE: PA and lateral views of the chest FINDINGS: Unchanged cardiomegaly. Prior median sternotomy with prosthetic mitral valve. Emphysema with chronic fibrotic change. No pneumothorax or large pleural effusion. Unchanged blunting of the left costophren ic angle. Patchy multifocal bilateral alveolar opacities are redemonstrated, slightly decreased bilat erally. No overt pulmonary edema. Degenerative changes of the shoulders and spine. IMPRESSION: 1. Extensive bilateral alveolar opacities redemonstrated suggestive of multifocal pneumonia, slightly improved from comparison. 2. Emphysema. The above report was generated using voice recognition software. It may contain grammatical, syntax o r spelling errors. Electronically signed by: Harinder Lorenzo M.D. 11/19/2018 11:08 AM
[2018-11-19] MEDS ORDERED: POTASSIUM CHLORIDE 10 MEQ TABCR PO STA (15:10)
[2018-11-19] MEDS ORDERED: FUROSEMIDE 10 MG in SYRINGE 0 ML IV ONE (15:30)
[2018-11-19] MEDS: DEXAMETHASONE CONC 3.75 MG, NYSTATIN 30 ML, DiphenhydrAMINE Syrup 300 MG, ORA-SWEET SYR... PO SCH ×2 (16:13→20:21)
--- NOTE | 2018-11-19 19:04 | Hospitalist Progress Note ---
Date of Service November 19, 2018 Assessment & Plan (1) Acute respiratory failure with hypoxia: Modestly improved today. 2nd to b/l pneumonia and acute bronchitis. I cannot exclude mild volume overload. Will give lasix today 10mg IV x 1 and reassess later today. Patient remains on zosyn IV. Completed a full course of doxcycline prior to admission along with 7+ days of prednisone. Will NOT restart any atypical coverage at this time. Suspect mod-severe undiagnosed COPD - continue advair 1 puff BID. Needs pulmonary follow-up post-discharge with PFTs. She reports having had PFTs in the past but I cannot find such in old [facility] nor [facility]. Plan for repeat CXR in am once again. (2) Pneumonia: b/l on imaging. cont zosyn. cont nebs. cont IV steroids. pulmonary toilet. lasix today. chest xray in am. (3) COPD exacerbation: Suspect she has undiagnosed COPD. It is probably moderate at minimum. Now with concomitant exacerbation. Steroids, nebs, abx, pulmonary toilet, advair. Will need PFTs post-discharge. Continue HS BIPAP. No wean on steroids today. (4) H/O mitral valve replacement with mechanical valve: Patient on Coumadin. She follows with Dr. Batista INR was markedly supratherapeutic (10+) on first 2 days of this hospital stay. s/p vitamin K 2mg PO X 1 on 11/17/18. INR today 1.5. INR in am. (5) Supratherapeutic INR: see discussion above in "mitral valve replacement" (6) Multiple sclerosis: History of such, but not on medication for it. Reports muscle cramps at night-time but this may be due to her severe Fe deficiency and not from the MS. Follow carefully for any MS flare. Records suggest stable MRIs over the years and relapsing-remitting subtype. (7) Depression: Continue Venlafaxine Continue remeron (8) Irritable bowel syndrome: no issues at this time (9) Iron deficiency anemia: severe. Ferritin level <10 just 1 week ago. Ferritin level in the early 1999s also low. needs outpatient endoscopic w/u for this once pulmonary issues have resolved. ferrous sulfate supplementation 325mg BID; consider IV venofer. patient quite thin - could she have undiagnosed celiac disease? sent celiac panel/TTGs. Hb today 7.4 but will defer on PRBCs due to concern of mild volume overload already. CBC in am. (10) Chronic pain syndrome: PDMP verifies daily use of narcotics. allow oxycodone prn. pt's daughters state it is for "MS pain", post-shingles pain, etc. 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 (14) DVT prophylaxis: coumadin cont PT, OT Subjective patient still requiring oxymask she feels better today however less cough, wheeze and dyspnea appetite slightly better just overall "has fatigue" Review of Systems Constitutional: no fever and no chills Respiratory: no hemoptysis Cardiovascular: + chest pain (with coughing) Gastrointestinal: + constipation; no abdominal pain, no nausea and no vomiting Physical Exam Constitutional: + ill appearing and + cachectic; + not well developed, + not well nourished, no acute distress and no altered mental status ENMT: Mouth: + oral mucosal abnormality (thrush plaques on tongue and buccal mucosa) Respiratory: no retractions and does not use accessory muscles Auscultation: + diminished lung sounds, + crackles (fine, b/l) and + wheezes Cardiovascular: Rate/Rhythm: regular rate and regular rhythm Heart Sounds: normal S1 and normal S2 (mechanical valve closure sound); no murmur Vessels: posterior tibial pulses present and dorsalis pedis pulses present Gastrointestinal (Abdomen): normal bowel sounds, soft, nontender, no hepatosplenomegaly Psychiatric: A+Ox3, euthymic affect Results & Data Vital Signs (Past 12 Hours) Vital Signs Temp Pulse Pulse Pulse Resp BP BP 11/19/18 16:03 36.3 C L 96 H 20 109/65 11/19/18 14:45 84 20 11/19/18 12:55 11/19/18 11:09 78 16 11/19/18 07:48 36.9 C 78 18 110/64 11/19/18 07:19 72 21 11/19/18 07:18 72 21 Pulse Ox 11/19/18 16:03 90 11/19/18 14:45 100 11/19/18 12:55 97 11/19/18 11:09 94 11/19/18 07:48 100 11/19/18 07:19 99 11/19/18 07:18 99 (1) Depression Depression Type: other depression Qualified Code(s): F32.89 - Other specified depressive episodes (2) Iron deficiency anemia Iron deficiency anemia type: unspecified iron deficiency Qualified Code(s): D50.9 - Iron deficiency anemia, unspecified (3) Pneumonia Laterality: left Lung location: unspecified part of lung Pneumonia type: due to unspecified organism Qualified Code(s): J18.9 - Pneumonia, unspecified organism (4) Irritable bowel syndrome Irritable bowel syndrome type: unspecified Qualified Code(s): K58.9 - Irritable bowel syndrome without diarrhea
[2018-11-19] MEDS: GABAPENTIN 100 MG CAP PO SCH (20:20)
[2018-11-19] MEDS: GABAPENTIN 300 MG CAP PO SCH (20:20)
[2018-11-19] MEDS: MIRTAZAPINE TAB 15 MG TAB PO SCH (20:20)
[2018-11-19] MEDS: MAGNESIUM OXIDE 400 MG TAB PO SCH (20:20)
[2018-11-20] MEDS: OXYCODONE HCL IR 5 MG TAB (IMMEDIATE RELEASE) PO PRN ×4 (02:23→22:24)
[2018-11-20] MEDS: ALBUT/IPRATROP 3MG/0.5MG NEB 3 ML VIAL NEB SCH ×6 (03:28→23:31)
[2018-11-20] MEDS: methylPREDNISolone 40 MG in SYRINGE 0 ML IV SCH (03:51)
[2018-11-20] MEDS: PIPERACILLIN/TAZOBACTAM 3.375 GM in DEXTROSE 5% 100 ML IV SCH ×3 (03:52→20:22)
[2018-11-20 05:50] LABS: Hematocrit (blood only) 23.1 % (37-47); Hemoglobin 7.2 g/dL (12.0-16.0); Mean Corpuscular Hgb Conc 31.2 g/dL (32-36); Mean Corpuscular Volume 77.5 fL (80-100); Mean Platelet Volume 9.2 fL (7.4-10.4); Platelet Count 262 K/uL (130-400); RDW Coefficient of Variation 19.1 % (11.5-14.5); RDW Standard Deviation 53.8 fL (36.4-46.3); Red Blood Count 2.98 M/uL (4.2-5.4); White Blood Count 8.58 K/uL (4.8-10.8)
[2018-11-20 06:04] LABS: INR 2.4 (0.9-1.1); Prothrombin Time 23.3 Seconds (9.0-12.0)
[2018-11-20 06:21] LABS: BUN Creatinine Ratio 37.3 (10-20); Calcium 8.5 mg/dl (8.5-10.1); Creatinine Clr Calc Pharmacy 53.4 ml/min; Est GFR (African American) 100.2; Est GFR (Non-African American) 86.5; Potassium 3.9 mmol/L (3.5-5.1)
[2018-11-20] MEDS: FLUTICASONE/SALMETEROL 250/50 (ADVAIR) 14 PUFF/1 INHALER INH SCH ×2 (08:20→20:23)
[2018-11-20] MEDS: VENLAFAXINE HCL XR 150 MG CAPXR PO SCH (08:21)
[2018-11-20] MEDS: MAGNESIUM OXIDE 400 MG TAB PO SCH ×2 (08:21→20:23)
[2018-11-20] MEDS: FERROUS SULFATE 325 MG TAB PO SCH ×2 (08:21→17:32)
[2018-11-20] MEDS: THIAMINE HCL 100 MG TAB PO SCH ×2 (08:22→20:26)
[2018-11-20] MEDS: DEXAMETHASONE CONC 3.75 MG, NYSTATIN 30 ML, DiphenhydrAMINE Syrup 300 MG, ORA-SWEET SYR... PO SCH ×4 (08:23→20:30)
[2018-11-20] MEDS: NICOTINE 21 MG/24 HR TDSY TD SCH (08:23)
--- NOTE | 2018-11-20 09:46 | XRay Report ---
XR chest 2V routine CLINICAL HISTORY: b/l pneumonia, ?superimposed edema? COMPARISON STUDY: 11/19/2018 FINDINGS: Moderate generalized improvement in the bilateral parenchymal infiltrative changes describe d previously. Mild residual. Trace pleural fluid left base laterally unchanged. Findings of a prior m edian sternotomy and valve replacement. IMPRESSION: Improving components of congestive failure/bilateral parenchymal infiltrative change. The above report was generated using voice recognition software. It may contain grammatical, syntax or spelling errors. Electronically signed by: Casey Carson M.D. 11/20/2018 9:45 AM
[2018-11-20] MEDS: guaiFENesin 600 MG TABCR PO SCH ×2 (09:49→20:26)
[2018-11-20] MEDS ORDERED: FUROSEMIDE 20 MG TAB PO ONE (10:15)
[2018-11-20] MEDS ORDERED: ACETAMINOPHEN 325 MG TAB PO STA (13:25)
[2018-11-20] MEDS ORDERED: SODIUM CHLORIDE 0.9% 250 ML IV PRN (13:25)
[2018-11-20] MEDS ORDERED: FUROSEMIDE 10 MG in SYRINGE 0 ML IV SCH (13:30)
[2018-11-20] MEDS ORDERED: diphenhydrAMINE HCl 12.5 MG/5 ML UDC PO ONE (13:40)
[2018-11-20] MEDS: methylPREDNISolone 20 MG in SYRINGE 0 ML IV SCH (17:52)
[2018-11-20] MEDS: MIRTAZAPINE TAB 15 MG TAB PO SCH (20:25)
[2018-11-20] MEDS: GABAPENTIN 300 MG CAP PO SCH (20:26)
[2018-11-20] MEDS: GABAPENTIN 100 MG CAP PO SCH (20:27)
--- NOTE | 2018-11-20 21:45 | Hospitalist Progress Note ---
Date of Service November 20, 2018 Assessment & Plan (1) Acute respiratory failure with hypoxia: 2nd to b/l pneumonia and acute bronchitis +/- mild volume overload. Clinically and radiographically much improved. Down to [place] O2. Continue to wean O2. Continue zosyn for pneumonia. Cont nebs, supportive care, pulmonary toilet, advair. Needs pulmonary follow-up post-discharge with PFTs. She reports having had PFTs in the past but I cannot find such in old [facility] nor [employer]. (2) Pneumonia: improving. cont zosyn. day #3 of zosyn. (3) COPD exacerbation: Suspect she has undiagnosed COPD. It is probably moderate at minimum. Now with concomitant exacerbation. This is improved. Wean steroids to 20mg q12h. Cont nebs, abx, pulmonary toilet, advair. Will need PFTs post-discharge. Would continue HS BIPAP. (4) H/O mitral valve replacement with mechanical valve: Patient on Coumadin. She follows with Dr. Batista INR was markedly supratherapeutic (10+) on first 2 days of this hospital stay. s/p vitamin K 2mg PO X 1 on 11/17/18. INR today 2.4. Repeat INR in am. (5) Supratherapeutic INR: see discussion above in "mitral valve replacement" resolved (6) Multiple sclerosis: History of such, but not on medication for it. Reports muscle cramps at night-time but this may be due to her severe Fe deficiency and not from the MS. Follow carefully for any MS flare. Records suggest stable MRIs over the years and relapsing-remitting subtype. (7) Depression: Continue Venlafaxine Continue remeron (8) Irritable bowel syndrome: no issues at this time (9) Iron deficiency anemia: severe. Ferritin level <10 just 1 week ago. Ferritin level in the early 1999s also low. needs outpatient endoscopic w/u for this once pulmonary issues have resolved. ferrous sulfate supplementation 325mg BID; consider IV venofer. patient quite thin - could she have undiagnosed celiac disease? celiac panel sent. in light of fatigue and respiratory failure plan to transfuse 1 unit PRBCs today - benadryl/tylenol prior, and lasix after H/H in am (10) Chronic pain syndrome: PDMP verifies daily use of narcotics. allow oxycodone prn. pt's daughters state it is for "MS pain", post-shingles pain, etc. (11) Severe protein-calorie malnutrition: MVI, boost, thiamine highly concerning for underlying malignancy given her chronic tobacco usage (12) DVT prophylaxis: coumadin daughter updated by phone today PT, OT progressing ! Subjective oxymask has been weaned off and she is now back to standard [place] o2. she feels good today had large bowel movement this am; stool sent for fecal occult -- was negative. her breathing is comfortable. cough is improved as is wheezing. she is pleased w/ progress. eating better as well. Review of Systems Constitutional: + fatigue; no fever and no chills Respiratory: no dyspnea and no dyspnea on exertion Cardiovascular: no chest pain Gastrointestinal: no nausea, no vomiting, no constipation and no diarrhea/loose stools Neurologic: no dizziness Physical Exam Constitutional: + cachectic; + not well developed, + not well nourished, no acute distress and no altered mental status looks better today ENMT: Mouth: + dentition abnormality (poor dentition) thrush plaques improved Respiratory: no retractions and does not use accessory muscles Auscultation: + crackles (fine, b/l - improved from yesterday's exam), + rhonchi and + wheezes (improved today) Cardiovascular: Rate/Rhythm: regular rate and regular rhythm Heart Sounds: normal S1 and normal S2 (mechanical valve closure sound); no murmur Vessels: posterior tibial pulses present and dorsalis pedis pulses present Gastrointestinal (Abdomen): normal bowel sounds, soft, nontender, no hepatosplenomegaly Psychiatric: A+Ox3, euthymic affect Results & Data Vital Signs (Past 12 Hours) Vital Signs Temp Pulse Pulse Pulse Resp BP Pulse Ox 11/20/18 19:00 72 16 91 11/20/18 16:15 37 C 84 20 114/63 94 11/20/18 15:39 36.8 C 84 18 137/86 96 11/20/18 15:15 36.7 C 79 18 127/80 95 11/20/18 15:00 36.8 C 81 18 126/79 96 11/20/18 14:36 36.6 C 85 18 100/63 11/20/18 14:31 81 16 92 11/20/18 11:19 77 18 97 Laboratory Results Laboratory Results - last 24 hr 11/18/18 11/20/18 11/20/18 09:33 05:21 05:21 WBC RBC Hgb Hct MCV MCH MCHC RDW Std Deviation RDW Coeff of Joseph Plt Count MPV PT 23.3 H INR 2.4 H Sodium 144 Potassium 3.9 Chloride 109 H Carbon Dioxide 29 Anion Gap 5.0 BUN 29 H Creatinine 0.76 Est Cr Clr Drug Dosing 53.4 Est GFR ( Amer) 100.2 Est GFR (Non-Af Amer) 86.5 BUN/Creatinine Ratio 37.3 H Glucose 102 H Calcium 8.5 Stool Occult Bld Scrn Blood Type A Positive Antibody Screen POSITIVE A Antibody Identification Anti-K Antigen Identification K Antigen - NEGATIVE Crossmatch See Detail 11/20/18 11/20/18 05:32 Unknown WBC 8.58 RBC 2.98 L Hgb 7.2 L Hct 23.1 L MCV 77.5 L MCH 24.2 L MCHC 31.2 L RDW Std Deviation 53.8 H RDW Coeff of Joseph 19.1 H Plt Count 262 MPV 9.2 PT INR Sodium Potassium Chloride Carbon Dioxide Anion Gap BUN Creatinine Est Cr Clr Drug Dosing Est GFR ( Amer) Est GFR (Non-Af Amer) BUN/Creatinine Ratio Glucose Calcium Stool Occult Bld Scrn Negative Blood Type Antibody Screen Antibody Identification Antigen Identification Crossmatch (1) Depression Depression Type: other depression Qualified Code(s): F32.89 - Other specified depressive episodes (2) Iron deficiency anemia Iron deficiency anemia type: unspecified iron deficiency Qualified Code(s): D50.9 - Iron deficiency anemia, unspecified (3) Pneumonia Laterality: left Lung location: unspecified part of lung Pneumonia type: due to unspecified organism Qualified Code(s): J18.9 - Pneumonia, unspecified organism (4) Irritable bowel syndrome Irritable bowel syndrome type: unspecified Qualified Code(s): K58.9 - Irritable bowel syndrome without diarrhea
[2018-11-21] MEDS: PIPERACILLIN/TAZOBACTAM 3.375 GM in DEXTROSE 5% 100 ML IV SCH ×3 (03:32→20:01)
[2018-11-21] MEDS: methylPREDNISolone 20 MG in SYRINGE 0 ML IV SCH (03:32)
[2018-11-21] MEDS: ALBUT/IPRATROP 3MG/0.5MG NEB 3 ML VIAL NEB SCH ×6 (04:04→23:20)
[2018-11-21 06:17] LABS: Hematocrit (blood only) 29.4 % (37-47); Hemoglobin 9.4 g/dL (12.0-16.0)
[2018-11-21 06:36] LABS: INR 2.4 (0.9-1.1)
[2018-11-21 06:45] LABS: BUN Creatinine Ratio 31.7 (10-20); Calcium 8.9 mg/dl (8.5-10.1); Creatinine Clr Calc Pharmacy 50.7 ml/min; Est GFR (African American) 94.2; Est GFR (Non-African American) 81.3; Magnesium 1.8 mg/dl (1.8-2.4); Potassium 4.1 mmol/L (3.5-5.1)
[2018-11-21] MEDS: DEXAMETHASONE CONC 3.75 MG, NYSTATIN 30 ML, DiphenhydrAMINE Syrup 300 MG, ORA-SWEET SYR... PO SCH ×4 (07:56→20:06)
[2018-11-21] MEDS: MAGNESIUM OXIDE 400 MG TAB PO SCH ×2 (07:57→20:08)
[2018-11-21] MEDS: FLUTICASONE/SALMETEROL 250/50 (ADVAIR) 14 PUFF/1 INHALER INH SCH ×2 (07:57→20:02)
[2018-11-21] MEDS: VENLAFAXINE HCL XR 150 MG CAPXR PO SCH (07:57)
[2018-11-21] MEDS: guaiFENesin 600 MG TABCR PO SCH ×2 (07:58→20:04)
[2018-11-21] MEDS: THIAMINE HCL 100 MG TAB PO SCH ×2 (07:58→20:04)
[2018-11-21] MEDS: NICOTINE 21 MG/24 HR TDSY TD SCH (07:58)
[2018-11-21] MEDS: OXYCODONE HCL IR 5 MG TAB (IMMEDIATE RELEASE) PO PRN ×3 (07:59→22:35)
[2018-11-21] MEDS ORDERED: IRON SUCROSE 100 MG in 0.9 % SODIUM CHLORIDE 100 ML IV ONE (09:30)
[2018-11-21] MEDS: FERROUS SULFATE 325 MG TAB PO SCH ×2 (10:20→16:20)
[2018-11-21] MEDS ORDERED: WARFARIN SOD 4 MG TAB PO SCH (16:00)
--- NOTE | 2018-11-21 19:33 | Hospitalist Progress Note ---
Date of Service November 21, 2018 Assessment & Plan (1) Acute respiratory failure with hypoxia: 2nd to b/l pneumonia and acute bronchitis +/- mild volume overload. RESOLVED. Off O2. Continue zosyn for pneumonia - day #6 of antibiotics. Cont nebs, supportive care, pulmonary toilet, advair. Stop IV steroids; wean to PO prednisone starting in am. Needs pulmonary follow-up post-discharge with PFTs. She reports having had PFTs in the past but I cannot find such in old [facility] nor [facility] [place]. Will need script for advair at discharge. (2) Pneumonia: doing so much better. cont zosyn but anticipate can go to PO abx tomorrow. would Rx for 10 days in light of severity of her pneumonia (b/l, multifocal). today is day #6 of abx. (3) COPD exacerbation: Suspect she has undiagnosed COPD. It is probably moderate at minimum. Now with concomitant exacerbation. This is improved. Stop IV steroids today; change to PO prednisone starting tomorrow. wean over 5-7 days. Cont nebs, abx, pulmonary toilet, advair. Will need PFTs post-discharge. Would continue HS BIPAP if she can tolerate. (4) H/O mitral valve replacement with mechanical valve: Patient on Coumadin. She follows with Dr. Batista INR was markedly supratherapeutic (10+) on first 2 days of this hospital stay. s/p vitamin K 2mg PO X 1 on 11/17/18. INR today 2.4. Repeat INR in am. (5) Supratherapeutic INR: see discussion above in "mitral valve replacement" resolved (6) Multiple sclerosis: History of such, but not on medication for it. Reports muscle cramps at night-time but this may be due to her severe Fe deficiency and not from the MS. Follow carefully for any MS flare. Records suggest stable MRIs over the years and relapsing-remitting subtype. (7) Depression: Continue Venlafaxine Continue remeron (8) Irritable bowel syndrome: no issues at this time in light of malnourishment, iron deficiency, failure to thrive - celiac panel sent (9) Iron deficiency anemia: severe. Ferritin level <10 just 1 week ago. Ferritin level in the early 1999s also low. needs outpatient endoscopic w/u for this once pulmonary issues have resolved. although fecal occult blood test was negative. ferrous sulfate supplementation 325mg BID. also gave 100mg of IV venofer today w/o issue. patient quite thin - could she have undiagnosed celiac disease? celiac panel sent. s/p 1 unit of PRBCs yesterday with good response. H/H stable today. (10) Chronic pain syndrome: PDMP verifies daily use of narcotics. allow oxycodone prn. pt's daughters state it is for "MS pain", post-shingles pain, etc. (11) Severe protein-calorie malnutrition: MVI, boost, thiamine highly concerning for underlying malignancy given her chronic tobacco usage (12) Tobacco use disorder: counseled to quit nicoderm patch (13) Candidiasis of mouth and esophagus: cont magic mouthwash likely from steroids/abx HIV test to be complete (14) Thyroid nodule: right has had bx in past and this was negative for cancer TSH in October was normal (15) DVT prophylaxis: coumadin daughter updated by phone yesterday PT, OT progressing very nicely home tomorrow on Thursday?? Subjective patient c/o fatigue but denies any significant cough, sputum production, or dyspnea appetite much improved tolerated PRBCs yesterday and tolerated the venofer infusion this am overall feels much better gives verbal consent for HIV testing thrush improving; less soreness in mouth Review of Systems Constitutional: + fatigue; no fever, no chills and no anorexia Respiratory: no hemoptysis, no sputum production and no wheezing Cardiovascular: no chest pain Gastrointestinal: no abdominal pain, no nausea and no vomiting Physical Exam Constitutional: + cachectic; + not well developed, + not well nourished, no acute distress and no altered mental status looks so much better than a few days ago ENMT: Mouth: + oral mucosal abnormality (thrush plaques on tongue and buccal mucosa) and + dentition abnormality (poor dentition) Neck: Thyroid: + thyroid nodule (right, at least 2-3cm in size; nontender) Respiratory: no respiratory distress, no retractions and does not use accessory muscles Auscultation: + crackles (fine, b/l - minimal today); no rhonchi and no wheezes Cardiovascular: Rate/Rhythm: regular rate and regular rhythm Heart Sounds: normal S1 and normal S2 (mechanical valve closure sound); no murmur Vessels: posterior tibial pulses present and dorsalis pedis pulses present Gastrointestinal (Abdomen): normal bowel sounds, soft, nontender, no hepatosplenomegaly Psychiatric: A+Ox3, euthymic affect Results & Data Vital Signs (Past 12 Hours) Vital Signs Temp Pulse Resp BP Pulse Ox 11/21/18 19:04 64 16 96 11/21/18 15:53 36.6 C 69 18 133/61 93 11/21/18 14:30 18 93 11/21/18 08:00 36.4 C L 69 18 155/78 H 93 Laboratory Results INR 2.4 hemoglobin 9.4 (1) Depression Depression Type: other depression Qualified Code(s): F32.89 - Other specified depressive episodes (2) Iron deficiency anemia Iron deficiency anemia type: unspecified iron deficiency Qualified Code(s): D50.9 - Iron deficiency anemia, unspecified (3) Pneumonia Laterality: left Lung location: unspecified part of lung Pneumonia type: due to unspecified organism Qualified Code(s): J18.9 - Pneumonia, unspecified organism (4) Irritable bowel syndrome Irritable bowel syndrome type: unspecified Qualified Code(s): K58.9 - Irritable bowel syndrome without diarrhea
[2018-11-21] MEDS: GABAPENTIN 300 MG CAP PO SCH (20:04)
[2018-11-21] MEDS: MIRTAZAPINE TAB 15 MG TAB PO SCH (20:08)
[2018-11-21] MEDS: GABAPENTIN 100 MG CAP PO SCH (20:09)
[2018-11-22] MEDS: ALBUT/IPRATROP 3MG/0.5MG NEB 3 ML VIAL NEB SCH ×3 (03:16→11:23)
[2018-11-22] MEDS: PIPERACILLIN/TAZOBACTAM 3.375 GM in DEXTROSE 5% 100 ML IV SCH (03:41)
[2018-11-22 05:45] LABS: Hematocrit (blood only) 30.2 % (37-47); Hemoglobin 9.6 g/dL (12.0-16.0); Mean Corpuscular Hgb Conc 31.8 g/dL (32-36); Mean Corpuscular Volume 81.2 fL (80-100); Mean Platelet Volume 9.2 fL (7.4-10.4); Platelet Count 301 K/uL (130-400); RDW Coefficient of Variation 19.2 % (11.5-14.5); RDW Standard Deviation 56.1 fL (36.4-46.3); Red Blood Count 3.72 M/uL (4.2-5.4); White Blood Count 4.97 K/uL (4.8-10.8)
[2018-11-22 06:06] LABS: BUN Creatinine Ratio 31.9 (10-20); Calcium 8.5 mg/dl (8.5-10.1); Creatinine Clr Calc Pharmacy 48.3 ml/min; Est GFR (African American) 88.8; Est GFR (Non-African American) 76.6; Potassium 3.8 mmol/L (3.5-5.1)
[2018-11-22 06:20] LABS: Prothrombin Time 19.5 Seconds (9.0-12.0)
[2018-11-22] MEDS: NICOTINE 21 MG/24 HR TDSY TD SCH (08:22)
[2018-11-22] MEDS: THIAMINE HCL 100 MG TAB PO SCH (08:23)
[2018-11-22] MEDS: DEXAMETHASONE CONC 3.75 MG, NYSTATIN 30 ML, DiphenhydrAMINE Syrup 300 MG, ORA-SWEET SYR... PO SCH (08:24)
[2018-11-22] MEDS: guaiFENesin 600 MG TABCR PO SCH (08:24)
[2018-11-22] MEDS: FLUTICASONE/SALMETEROL 250/50 (ADVAIR) 14 PUFF/1 INHALER INH SCH (08:24)
[2018-11-22] MEDS: MAGNESIUM OXIDE 400 MG TAB PO SCH (08:24)
[2018-11-22] MEDS: VENLAFAXINE HCL XR 150 MG CAPXR PO SCH (08:24)
[2018-11-22] MEDS: FERROUS SULFATE 325 MG TAB PO SCH (08:24)
[2018-11-22] MEDS ORDERED: predniSONE 10 MG TABLET PO SCH (09:00)
[2018-11-22] MEDS: OXYCODONE HCL IR 5 MG TAB (IMMEDIATE RELEASE) PO PRN (10:17)
[2018-11-22] MEDS: CEROVITE ADV FORMULA TAB PO SCH (10:17)
--- NOTE | 2018-11-22 11:22 | Discharge Summary ---
Date of Service November 22, 2018 Admission HPI Per Admitting Provider Didi Gant is a 58yo C female with history of COPD, GERD, MS, breast cancer presenting with pneumonia. Patient reports URI symptoms over the last week to include cough productive for yellow/green sputum and shortness of breath. She was seen by her PCP on 09 November and was prescribed Doxycycline, Prednisone and Albuterol. Patient states that her symptoms did not improve. She continues to be febrile, last fever yesterday 101. She is also complaining of severe left sided pain as well as muscle spasms. ER Course: Dilaudid 0.5mg, Xopenex, Levaquin, Solumedrol 125mg, Zofran 4mg, Zosyn Principal Diagnosis Multifocal pneumonia Discharge Exam Constitutional well nourished and + thin; no acute distress Eyes PERRL, conjunctivae normal, anicteric sclerae ENMT external ear and nose normal, oropharynx normal Neck trachea midline, no thyromegaly Respiratory normal respiratory effort; no respiratory distress Auscultation: + diminished lung sounds; no crackles, no rhonchi and no wheezes Cardiovascular RRR, no murmur, no edema Gastrointestinal (Abdomen) normal bowel sounds, soft, nontender, no hepatosplenomegaly Musculoskeletal no cyanosis or clubbing, extremities motor strength 5/5 Skin no rashes, warm and dry Neurologic patellar DTR's 2+ bilat, sensation intact and PERRL, EOMI, accommodation nl, no face palsy, no dysarthria Psychiatric A+Ox3, euthymic affect Lymphatic no cervical or axillary lymphadenopathy Discharge Data Allergies Allergy/AdvReac Type Severity Reaction Status Date / Time No Known Allergies Allergy Verified 11/16/18 01:38 Consultations 11/15/18 23:24 ED Decision to Admit Stat Ordered Studies 11/15/18 21:43 CT angio chest PE protocol Urgent Hospital Course (1) Acute respiratory failure with hypoxia: 2nd to b/l pneumonia and acute bronchitis +/- mild volume overload. RESOLVED. Off O2. completed 7 days of zosyn for pneumonia - will d/c home on Augmentin for 3 more days also treated with nebulizers, steroids Needs pulmonary follow-up post-discharge with PFTs. (2) Pneumonia: doing so much better. would Rx for 10 days in light of severity of her pneumonia (b/l, multifocal). again, d/c to home on Augmentin for three more days to complete 10 days total treatment (3) COPD exacerbation: Suspect she has undiagnosed COPD. It is probably moderate at minimum. Now with concomitant exacerbation. exacerbation improved treated with Solu Medrol for 6 days, change to Prednisone, complete brief taper will start on Advair for maintenance needs follow up with pulmonary (4) H/O mitral valve replacement with mechanical valve: Patient on Coumadin. She follows with Dr. Batista INR was markedly supratherapeutic (10+) on first 2 days of this hospital stay. s/p vitamin K 2mg PO X 1 on 11/17/18. INR slightly subtherapeutic will get INR on 11/24 and follow up with cardiology for dose instructions (5) Supratherapeutic INR: see discussion above in "mitral valve replacement" resolved (6) Multiple sclerosis: History of such, but not on medication for it. Reports muscle cramps at night-time but this may be due to her severe Fe deficiency and not from the MS. Follow carefully for any MS flare. Records suggest stable MRIs over the years and relapsing-remitting subtype. (7) Depression: Continue Venlafaxine Continue remeron (8) Irritable bowel syndrome: no issues at this time in light of malnourishment, iron deficiency, failure to thrive - celiac panel sent (9) Iron deficiency anemia: severe. Ferritin level <10 just 1 week ago. Ferritin level in the early also low. needs outpatient endoscopic w/u for this once pulmonary issues have resolved. although fecal occult blood test was negative. ferrous sulfate supplementation 325mg BID. also gave 100mg of IV venofer today w/o issue. patient quite thin - could she have undiagnosed celiac disease? celiac panel sent. s/p 1 unit of PRBCs with good response. H/H stable today. (10) Chronic pain syndrome: PDMP verifies daily use of narcotics. allow oxycodone prn. pt's daughters state it is for "MS pain", post-shingles pain, etc. (11) Severe protein-calorie malnutrition: MVI, boost, thiamine highly concerning for underlying malignancy given her chronic tobacco usage (12) Tobacco use disorder: counseled to quit nicoderm patch (13) Candidiasis of mouth and esophagus: cont magic mouthwash likely from steroids/abx HIV negative. complete 7 more days of Nystatin, helping a lot (14) Thyroid nodule: right has had bx in past and this was negative for cancer TSH in October was normal (15) DVT prophylaxis: coumadin daughter updated by phone yesterday PT, OT progressing very nicely home tomorrow on Thursday?? Total Time Total Time Spent Total Time Spent (In Minutes): 40 minutes Discharge Plan Discharge Items Patient Disposition: Home - Self-Care Reason For Visit: MULTIFOCAL PNA Discharge Diagnosis: Multifocal pneumonia COPD with mild exacerbation Elevated INR Condition: Good Discharge Goals: Diagnostic testing and Improve disease control Activity: Resume your previous activity Non-emergency contact: Primary Care Provider Call non-emergency contact if: you have any medication questions, your symptoms worsen and you have a fever Follow-up/Referrals: Casandra Kraus PA-C [Physician Cosmetic Manager] - 12/08/18 1:00 pm (Please, follow up at [facility] Gastro[facility]ology [facility] with Casandra Kraus PA-C on ThursdayDecember 08 at 1:00 pm. *This office is located at [address] [place] [address] in [facility]). If you need to change this appointment, call the office at [phone].) Rylie Richardson DO [Primary Care Provider] - 11/29/18 10:40 am (Please, follow up at Dr. Richardson's office with her associate, Ruperto BERKOWITZ, on ThursdayNovember 29 at 10:40 am. *If you need to change this appointment, call the office at [phone].) Sherlyn Hull CRNP [Nurse Practitioner] - 12/02/18 1:00 pm (Please, follow up at [facility] Pulmon[facility] Office with Sherlyn BERKOWITZ on December 02 at 1:00 pm (arrive 12:40 pm). The office is located in [address] of [facility]. This is the big building located next to this [facility]. If you need to change this appointment, call the office at [phone].) Diet: Regular Other Ambulatory Orders: Prothrombin Time INR (Routine) Timeframe: 2 Days Location: Determined by Patient Ordered By: Sean Espino Provider Instructions: Medications: - AMOXICILLIN/CLAVULONATE: take twice a day for 7 more doses, next dose due this evening - PREDNISONE: follow brief taper over the next 7 days, next dose of 30mg is due tomorrow morning - ADVAIR: maintenance inhaler started while inpatient, inhale twice a day for maintenance of lung function - THIAMINE and MULTIVITAMIN: take as prescribed for supplementation - FERROUS SULFATE: you are iron deficient, take this twice a day, see below, main side effect can be constipation - NYSTATIN: swish and swallow four times a day for oral thrush infection Multifocal pneumonia much improved, no fever, breathing well, WBC normal lungs clear on exam completed 7 days of antibiotics while admitted change to Augmentin, complete 3 more days Possible COPD with mild exacerbation, wheezing lungs clear, no distress will complete Prednisone taper over the next week, continue to use Albuterol inhaler Advair inhaler prescribed to use twice a day, this is MAINTENANCE medication, you use it twice a day every day, even if breathing is stable recommend follow up with pulmonary and PFT once lungs are recovered from infection, will arrange appointment Oral thrush: complete 7 days of Nystatin swish and swallow Iron deficiency: iron supplementation with Ferrous sulfate twice a day recommend follow up with gastroenterology to be evaluated for scopes, causes of iron deficiency will arrange appointment for you Tobacco abuse provided with Nicotine patch while inpatient these are over the counter based on your insurance coverage strongly recommend considering to use them, would use 21mcg patch for 7 days then 14mcg patch for 14 days then 7mcg patch for 14 days Elevated INR recommend repeat INR on Friday 11/24 with [facility] INR is 2.0 today, should be 2.5 continue on 4mg and 6mg dosing but may want to decrease dosing since INR was >10 on admission discuss with the coag nurse after you get INR on Thursday FOLLOW UP - Dr. Richardson in one week - Pulmonary in a few weeks for PFT - Gastroenterology in a few weeks for consideration of endoscopy, work up for iron deficiency Prescriptions: New ferrous sulfate 325 mg (65 mg iron) Tablet,Delayed Release (Dr/Ec) 325 mg PO BIDM 30 Days Qty: 60 RF: 1 fluticasone propion-salmeterol [Advair Diskus] 250-50 mcg/dose Blister With Device 1 inha inhalation BID 30 Days Qty: 60 RF: 1 thiamine HCl (vitamin B1) [Vitamin B-1] 100 mg Tablet 200 mg PO BID 30 Days Qty: 120 RF: 0 Certavite-Antioxidant 18-400 mg-mcg Tablet 1 tab PO QAM 30 Days Qty: 30 RF: 1 amoxicillin-pot clavulanate 875-125 mg tablet 1 tab PO BID Qty: 7 RF: 0 Continued warfarin [Jantoven] 4 mg tablet 4 mg PO 3XWK RF: 0 warfarin [Jantoven] 4 mg tablet 6 mg PO 4XWK RF: 0 baclofen 10 mg tablet 10 mg PO BID PRN (Reason: Muscle Spasm) RF: 0 ranitidine HCl 150 mg tablet 150 mg PO QPM RF: 0 gabapentin 300 mg capsule 300 mg PO HS RF: 0 gabapentin 100 mg capsule 100 mg PO HS RF: 0 dicyclomine 10 mg capsule 10 mg PO QID PRN (Reason: Abdominal Discomfort) RF: 0 venlafaxine 150 mg capsule,extended release 24hr 300 mg PO QAM RF: 0 mirtazapine 15 mg tablet 15 mg PO DAILY RF: 0 oxycodone 5 mg tablet 5 mg PO TID PRN (Reason: Pain) RF: 0 albuterol sulfate [Ventolin HFA] 90 mcg/actuation HFA aerosol inhaler 2 puff inhalation QID PRN (Reason: Shortness Of Breath Or Wheezing) Qty: 6.7 RF: 2 Stand-Alone Forms: [facility] Discharge Orders: Discharge Order (Routine); Ordered 11/22/18 Ordered By: Sean Lenz Admission Data Admit Date/Time: 11/16/18 02:09 Attending Provider: Sean Lenz Admit Provider: Izabel Samson Primary Care Provider: Rylie Richardson. Other Providers: Izabel Samson Service: Medical Other Interventions: Discharge Summary Assessment (RN) Last Done: 11/22/18 11:40 DC Date/Time DO NOT enter until pt leaves facility: 11/22/18 13:42
[2018-11-24 12:46] LABS: IgA Serum 172 mg/dL (81-463); Tis Trans IgA 1 U/mL (<4)
== END 2018-11-22 13:42 | disposition home or self-care (01) | DRG 193 ==
LOC: ED 20:26 → 2N 11-16 02:09 → SUATTDRO 11-16 02:09 → 2N 11-16 02:48 → 4E 11-21 18:23
DX: D50.9 Iron deficiency anemia, unspecified; F17.210 Nicotine dependence, cigarettes, uncomplicated; Z95.2 Presence of prosthetic heart valve; E04.1 Nontoxic single thyroid nodule; J44.1 Chronic obstructive pulmonary disease with (acute) exacerbation; J18.9 Pneumonia, unspecified organism; E43 Unspecified severe protein-calorie malnutrition; M79.7 Fibromyalgia; F32.9 Major depressive disorder, single episode, unspecified; K58.9 Irritable bowel syndrome, unspecified; B37.0 Candidal stomatitis; Z80.3 Family history of malignant neoplasm of breast; J96.01 Acute respiratory failure with hypoxia; Z79.01 Long term (current) use of anticoagulants; G35 Multiple sclerosis; G89.29 Other chronic pain

== ENCOUNTER 2021-10-31 17:29 | Inpatient (IN) ==
[2021-10-31] MEDS ORDERED: SODIUM CHLORIDE 0.9% 1000ML 1,000 ML IV ONE (17:53)
--- NOTE | 2021-10-31 18:04 | Emergency Department Note ---
Impression & Plan Radial artery occlusion, left, Urothelial carcinoma of kidney, Hematuria, Supratherapeutic INR ED Provider Note NAME: KENNETH JORGE AGE: 61 SEX: F : 1960 ARRIVES VIA: Walk-In INFORMANT: Patient ED PROVIDER(S): Orville Gan DO CHIEF COMPLAINT: arm pain HPI: Patient is a 61-year-old female who had a nephrectomy performed at [facility]. She had an arterial line in her left arm. Since Thursday she is having pain which comes and goes in the left arm/hand. Initially starts with paresthesias and then it becomes numb and painful. This happens 3-4 times a day. She notes that since the surgery she has also been having belly pain that has not changed in any way. She has a DANIEL drain in place which drains once a day she has to empty it and has blood in it. In her Eas[place] she has noticed today that she has had blood. She is been having blood intermittently since this was placed. She denies any headaches or fevers. No other exacerbating or remitting factors other than she feels sore and achy all over. She denies any weakness in her left arm. ROS: See above HPI for pertinent positives & negatives. A total of 10 systems reviewed and were otherwise negative. PAST MEDICAL HISTORY:See Below PAST SURGICAL HISTORY:See Below FAMILY HISTORY:See Below SOCIAL HISTORY:See Below HOME MEDICATIONS:See Below ALLERGIES:See Below VITALS:See Below PHYSICAL EXAMINATION: GENERAL: Sitting up in bed, alert, chronically ill-appearing, cachectic EYE EXAM: normal conjunctiva. PERRL and EOM's grossly intact. OROPHARYNX: no exudate, no erythema, lips, buccal mucosa, and tongue normal and mucous membranes are moist NECK: supple, no nuchal rigidity, no adenopathy, non-tender LUNGS: Clear to auscultation. Normal chest wall mechanics HEART: no murmurs, S1 normal and S2 normal ABDOMEN: abdomen soft, non-tender, normo-active bowel sounds, no masses, no rebound or guarding. BACK: Back is symmetrical on inspection and there is no deformity, no midline tenderness, no CVA tenderness. SKIN: Warts on abdomen are clean and dry. DANIEL drain with 5 cc of bright blood in left lower quadrant UPPER EXTREMITIES: Bilateral hands are purple/pallor. Sluggish capillary refill bilaterally. Unable to appreciate left radial pulse. Grasp as well as flexion/extension of the elbow wrist and shoulder is intact. LOWER EXTREMITIES: No pitting edema. NEURO EXAM: Normal sensorium, cranial nerves II-XII grossly intact, normal speech, no gross weakness of arms, no gross weakness of legs. MEDICAL DECISION MAKING: Patient is a 61-year-old female postop from nephrectomy at [facility] who presents ER for left arm pain/hand pain which has been significantly worsening since Thursday. Waxes wanes throughout the day. She notes that today has gotten significantly worse. IV was established blood work was obtained. Labs show no significant leukocytosis and mild anemia 10.4. INR was supratherapeutic at 4.3. BMP with a creatinine 1.2. LFTs bilirubin and lipase is unremarkable. UA with a large amount of hematuria. Do favor this from the elevated INR. Ultrasound/arterial scan shows occlusion of the mid left radial artery distally. The ulnar was completely open. Discussed with Dr. Edmonds recommended observation and heparin overnight without bolus with thought that Coumadin was not treating a clot. Discussed with Dr. Samson she recommended holding on a heparin and she will be discussed with Dr. Edmonds. Patient was updated bedside. She was given dose of morphine. She will be admitted for further work-up. Triage Nursing notes reviewed. Limited review of prior medical records performed Vital Signs: reviewed and remarkable for no significant abnormalities Differential diagnosis: DVT, musculoskeletal, infection, joint effusion, trauma, lymphedema, idiopathic, CHF, as well as other pathologies. ER treatment provided: See below Diagnostics interpreted by me: Cardiac Monitoring: An order was placed for continuous cardiac monitoring. The monitor shows a rate of 70 with sinus rhythm. Laboratory studies: As stated above and show below. Imaging studies: CT abdomen pelvis as discussed above shows no acute pathology but expected postop changes Ultrasound left upper extremity shows left mid to distal radial artery occlusion Consultation(s): Discussed with Dr. Edmonds as stated above Discussed with Lupe Samson as stated above Procedures: none Critical Care: None Past Med/Surg History Medical History ADHD Anemia Aneurysm Anxiety and depression Cerebral aneurysm Cervical radiculopathy Chronic pain syndrome COPD (chronic obstructive pulmonary disease) Eating disorder Fibromyalgia Gastric ulcer GERD (gastroesophageal reflux disease) Hiatal hernia History of breast cancer Hypertension Hyperthyroidism Irritable bowel syndrome Multiple sclerosis Nonrheumatic mitral (valve) prolapse Osteoporosis Raynauds disease Spinal stenosis Thyroid nodule Surgical History H/O mitral valve replacement with mechanical valve History of cardiac cath History of section History of esophagogastroduodenoscopy (EGD) History of heart surgery History of lumpectomy of left breast History of nasal polypectomy History of open reduction and internal fixation (ORIF) procedure History of rectal surgery (10/2020) History of tonsillectomy History of tooth extraction History of total mastectomy of left breast Status post open reduction and internal fixation (ORIF) of fracture Family History Father Alcohol abuse Lung cancer Mother Anxiety Depression Breast cancer Brother Hyperthyroidism Other No family history of adverse response to anesthesia Denies family history of Ovarian cancer Prostate cancer Myocardial infarction Colorectal cancer Social History Smoking Status: Unknown if ever smoked Tobacco Type: Cigarettes packs per day: 0.5; Cigarettes Per Day: 10 cigs/day; Second Hand Exposure: Yes (Father smoked); Hx Alcohol Use: Yes (Rare) Alcohol type: other Hx Substance Use: No Preferred Language: Angolan Communication Ability: Effective Visual Impairment: No Limitations Hearing Ability: Normal Api Architect Required: No Beliefs That Will Affect Care: None marital status: Current Living Situation: Family Current Living Situation Comment: Lives w/ daughter current occupational status: disabled Feels Safe at Home: Yes Childhood Exposure to Second-Hand Smoke: Yes caffeine: Yes (COFFEE) during the past year weight has: remained stable Dental Care, Regularly: Yes Physical Activity Frequency: 1-2 Times per Week Physical Activity Frequency Comment: WALKING Seatbelt Use: always Sunscreen Use: Yes Assistive Devices: Contacts, Denture - Upper and Denture - Lower Allergies Allergies Allergy/AdvReac Type Severity Reaction Status Date / Time azithromycin [From Zithromax] AdvReac Mild Gastrointestinal Verified 10/31/21 16:15 Upset Home Meds Home Medications Medication Instructions Recorded Confirmed mirtazapine 15 mg tablet 15 mg PO HS 11/16/18 10/31/21 venlafaxine 150 mg 300 mg PO QAM 11/16/18 10/31/21 capsule,extended release 24 hr mupirocin 2 % topical ointment 1 appln TOP BID PRN 03/15/20 10/31/21 methylphenidate HCl 10 mg 15 mg PO BID tab 05/24/20 10/31/21 tablet,extended release lansoprazole 30 mg capsule,delayed 30 mg PO QPM 02/22/21 10/31/21 release polyethylene glycol 3350 17 17 g PO QPM PRN 02/22/21 10/31/21 gram/dose oral powder (Miralax) dicyclomine 10 mg capsule 10 mg PO QID PRN 06/05/21 10/31/21 fluticasone propionate 50 2 spray INTRANASAL BID 06/05/21 10/31/21 mcg/actuation nasal spray,suspension warfarin 4 mg tablet (Jantoven) 4 mg PO 4XWK 10/31/21 10/31/21 warfarin 4 mg tablet (Jantoven) 6 mg PO 3XWK 10/31/21 10/31/21 Previous Rx's Medication Instructions Recorded Donut Pillow #1 ea 09/25/20 gabapentin 300 mg capsule 300 mg PO HS #90 cap 11/26/20 gabapentin 100 mg capsule 100 mg PO BID #60 cap 06/10/21 baclofen 10 mg tablet 10 mg PO BID PRN #60 tab 10/15/21 lisinopril 5 mg tablet 5 mg PO DAILY #30 tab 10/21/21 Results & Data (ED) Vital Signs Vital Signs - 24 hr 10/31/21 17:30 10/31/21 17:41 10/31/21 17:53 Temperature 36.3 C L Temperature Source Temporal Artery Scan Pulse Rate 87 Pulse Rate [Finger] 70 Pulse Rhythm [Finger] Pulse Strength [Finger] Respiratory Rate 16 16 Respiratory Effort / Characteristics Respiratory Depth Respiratory Pattern Blood Pressure 142/93 H Blood Pressure [Left Arm] 139/89 Blood Pressure Mean 109 Blood Pressure Mean [Left Arm] 105 Blood Pressure Position [Left Arm] Pulse Oximetry 96 99 98 Oxygen Delivery Method Room Air Sepsis Recent Fever Within 48 Hours No Sepsis New/Unexplained Change in Mental Status N/A Sepsis Action Taken by Nursing No Action Required 10/31/21 19:00 10/31/21 21:00 10/31/21 23:00 Temperature 37.1 C 37.2 C Temperature Source Oral Oral Pulse Rate Pulse Rate [Finger] 61 64 64 Pulse Rhythm [Finger] Regular Regular Regular Pulse Strength [Finger] Normal Normal Normal Respiratory Rate 18 18 18 Respiratory Effort / Characteristics Non-Labored Spontaneous Non-Labored Spontaneous Non-Labored Spontaneous Respiratory Depth Normal Normal Normal Respiratory Pattern Regular Blood Pressure Blood Pressure [Left Arm] 133/87 133/87 133/87 Blood Pressure Mean Blood Pressure Mean [Left Arm] 102 102 102 Blood Pressure Position [Left Arm] Sitting Lying Lying Pulse Oximetry 100 96 97 Oxygen Delivery Method Room Air Room Air Room Air Sepsis Recent Fever Within 48 Hours Sepsis New/Unexplained Change in Mental Status Sepsis Action Taken by Nursing Laboratory Data Result diagrams: 10/31/21 18:15 10/31/21 18:15 Lab Results 10/31/21 10/31/21 10/31/21 Range/Units 18:15 18:15 18:15 WBC 5.07 (4.8-10.8) K/uL RBC 3.26 L (4.2-5.4) M/uL Hgb 10.4 L (12.0-16.0) g/dL Hct 31.7 L (37-47) % MCV 97.2 (80-100) fL MCH 31.9 (25-34) pg MCHC 32.8 (32-36) g/dL RDW Std Deviation 49.9 H (36.4-46.3) fL RDW Coeff of Joseph 14.4 (11.5-14.5) % Plt Count 218 (130-400) K/uL MPV 10.3 (7.4-10.4) fL Immature Gran % (Auto) 0.2 % Neut % (Auto) 66.8 % Lymph % (Auto) 17.0 % Larue % (Auto) 9.3 % Eos % (Auto) 6.7 % Baso % (Auto) 0.0 % Neut # (Auto) 3.39 (1.4-6.5) K/uL Lymph # (Auto) 0.86 L (1.2-3.4) K/uL Larue # (Auto) 0.47 (0.11-0.59) K/uL Eos # (Auto) 0.34 (0-0.5) K/uL Baso # (Auto) 0.00 (0-0.2) K/uL Immature Gran # (Auto) 0.01 (0.00-0.02) K/uL PT 42.5 H (9.0-12.0) Seconds INR 4.3 H (0.9-1.1) Sodium 140 (136-145) mmol/L Potassium 3.9 (3.5-5.1) mmol/L Chloride 104 (98-107) mmol/L Carbon Dioxide 29 (21-32) mmol/L Anion Gap 7 (3-11) BUN 27 H (6-23) mg/dl Creatinine 1.25 H (0.6-1.2) mg/dl Est Cr Clr Drug Dosing 33.4 ml/min Est GFR ( Amer) 53.8 ml/min Est GFR (Non-Af Amer) 46.4 ml/min BUN/Creatinine Ratio 21.6 H (10-20) Glucose 84 (70-99(Fasting)) mg/dl Calcium 9.3 (8.5-10.1) mg/dl Total Bilirubin 0.5 (0.2-1.0) mg/dl AST 38 (13-39) U/L ALT 40 (7-52) U/L Alkaline Phosphatase 93 (34-104) U/L Total Protein 7.1 (6.0-8.3) gm/dl Albumin 4.0 (3.4-5.0) gm/dl Globulin 3.1 (2.5-4.0) gm/dl Albumin/Globulin Ratio 1.3 (0.9-2) Lipase 135 H (11-82) U/L Administered Medications Discontinued Medications Sodium Chloride (Nss 1000ml) 1,000 mls @ 999 mls/hr IV .Q1H1M ONE Stop: 10/31/21 18:53 Last Infusion: 10/31/21 20:46 Dose: 0 mls/hr Documented by: [id number] Admin: 10/31/21 18:13 Dose: 999 mls/hr Documented by: [id number] Ioversol (Optiray 320 100ml) 60 ml IV ONCE ONE Stop: 10/31/21 20:38 Last Admin: 10/31/21 20:38 Dose: 60 ml Documented by: [id number] Morphine Sulfate (Morphine Sulfate 2 Mg/Ml Carp) 2 mg IV NOW STA Stop: 10/31/21 21:21 Last Admin: 10/31/21 22:11 Dose: 2 mg Documented by: [id number] Imaging Data Radiologist's Impression: Duplex Scan Upper Extremity Artery 10/31/21 17:53 US arterial duplex left upper extremity HISTORY: left arm pain COMPARISON STUDY: None. FINDINGS: The left common carotid, vertebral, subclavian, axillary, brachial, and ulnar arteries appear widely patent. The majority of the mid to distal left radial artery appears occluded with only trace flow identified. This suggests an acute occlusion. IMPRESSION: The majority of the mid to distal left radial artery appears occluded with only trace flow identified. This suggests an acute occlusion ACT 112: Negative or not required by law. Electronically signed by: Eddie Reyes M.D. 10/31/2021 7:44 PM Abdomen/Pelvis CT 10/31/21 19:[address] WITH IV CONTRAST CT DOSE: 257.71 mGy.cm HISTORY: post op generalized abdominal pain. Hematuria TECHNIQUE: Multiaxial CT images of the abdomen and pelvis were performed following the use of intravenous contrast. A dose lowering technique was utilized adhering to the principles of ALARA. COMPARISON STUDY: Abdomen and pelvis CT 04/05/2021. FINDINGS: There is a small cluster of nodules within the base of the right lower lobe with the largest measuring 6 mm. These are new from the prior study and favor tree-in-bud nodules. Emphysema again noted at the lung bases. There is a single punctate focus of extraluminal gas within the mid subdiaphragmatic space on image 58. This is likely due to the recent postoperative change. Trace ascites seen within the perihepatic and deep pelvic locations. No pneumatosis. There is subcutaneous and emphysema seen within the anterior abdominal wall. This is likely due to the recent postoperative change. No suspicious lytic or blastic osseous lesions. Partially visualized mitral valve prosthesis. Mild thickening of the gastric antrum. This could be due to underdistention. No evidence for bowel obstruction. Normal appendix. Rectosigmoid anastomotic suture is noted. A few colonic diverticula. No evidence for acute diverticulitis. Moderate well-formed stool within the colon. The main portal vein is patent. Mild central intrahepatic bile duct dilatation is noted. Normal caliber common bile duct. There are 2 subcentimeter hypodense lesions within the liver. These are technically too small to characterize but favor cysts. Mild gallbladder distention. No gallbladder wall thickening. The spleen, right adrenal gland, and pancreas are unremarkable. Mild thickening of the left adrenal gland interval left nephrectomy. Trace fluid/edema at the nephrectomy bed. No soft tissue masses or hematoma identified. No retroperitoneal lymphadenopathy. Calcified plaque within the normal caliber abdominal aorta. The bladder is decompressed by Easley catheter. There is contrast within the bladder lumen. There is a surgical drain terminating within the left mid abdomen. IMPRESSION: 1. Interval left nephrectomy. A single punctate focus of extraluminal gas within the abdomen, trace scattered ascites, and subcutaneous emphysema within the anterior abdominal wall. These favor postoperative change. 2. Questionable thickening of the gastric antrum which may be due to underdistention. A mild gastritis could also a similar appearance. 3. No evidence for bowel obstruction. 4. Moderate well-formed stool within the colon. 5. Mild gallbladder distention. No gallbladder wall thickening. ACT 112: Negative or not required by law. Electronically signed by: Eddie Reyes M.D. 10/31/2021 8:55 PM Discharge Plan Visit Data Chief Complaint: Arm Pain Stated Complaint: BLOCKED ARTERY IN L ARM; DR VIKTORIYA ED Provider: Orville Gan Discharge Problem: Radial artery occlusion, left, Urothelial carcinoma of kidney, Hematuria, Supratherapeutic INR Forms Stand Alone Forms: My Snip2Code Prescriptions Prescriptions: No Action gabapentin 300 mg capsule 300 mg PO HS Qty: 90 RF: 3 gabapentin 100 mg capsule 100 mg PO BID Qty: 60 RF: 5 baclofen 10 mg tablet 10 mg PO BID PRN (Reason: muscle spasm) Qty: 60 RF: 0 lisinopril 5 mg tablet 5 mg PO DAILY Qty: 30 RF: 5 methylphenidate HCl 10 mg tablet extended release 15 mg PO BID RF: 0 (DME) Donut Pillryan See Rx Instructions .Route .MEDSUPPLY Qty: 1 RF: 0 venlafaxine 150 mg capsule,extended release 24hr 300 mg PO QAM RF: 0 mirtazapine 15 mg tablet 15 mg PO HS RF: 0 mupirocin 2 % ointment 1 appln TOP BID PRN (Reason: Rash) RF: 0 lansoprazole 30 mg capsule,delayed release(DR/EC) 30 mg PO QPM RF: 0 polyethylene glycol 3350 [Miralax] 17 gram/dose powder 17 g PO QPM PRN (Reason: Constipation) RF: 0 warfarin [Jantoven] 4 mg tablet 4 mg PO 4XWK RF: 0 warfarin [Jantoven] 4 mg tablet 6 mg PO 3XWK RF: 0 fluticasone propionate 50 mcg/actuation spray,suspension 2 spray intranasal BID RF: 0 dicyclomine 10 mg capsule 10 mg PO QID PRN (Reason: Abdominal Distention) RF: 0 Referrals Referrals: Rylie Richardson DO [Primary Care Provider] -
[2021-10-31 18:24] LABS: Eosinophils # (auto) 0.34 K/uL (0-0.5); Eosinophils % (auto) 6.7 %; Hematocrit (blood only) 31.7 % (37-47); Hemoglobin 10.4 g/dL (12.0-16.0); Immature Granulocytes # (auto) 0.01 K/uL (0.00-0.02); Immature Granulocytes % (auto) 0.2 %; Lymphocytes # (auto) 0.86 K/uL (1.2-3.4); Mean Corpuscular Hemoglobin 31.9 pg (25-34); Mean Corpuscular Hgb Conc 32.8 g/dL (32-36); Mean Corpuscular Volume 97.2 fL (80-100); Mean Platelet Volume 10.3 fL (7.4-10.4); Monocytes # (auto) 0.47 K/uL (0.11-0.59); Monocytes % (auto) 9.3 %; Neutrophils # (auto) 3.39 K/uL (1.4-6.5); Neutrophils % (auto) 66.8 %; Platelet Count 218 K/uL (130-400); RDW Coefficient of Variation 14.4 % (11.5-14.5); RDW Standard Deviation 49.9 fL (36.4-46.3); Red Blood Count 3.26 M/uL (4.2-5.4); White Blood Count 5.07 K/uL (4.8-10.8)
[2021-10-31 19:08] LABS: INR 4.3 (0.9-1.1); Prothrombin Time 42.5 Seconds (9.0-12.0)
[2021-10-31 19:15] LABS: Albumin Globulin Ratio 1.3 (0.9-2); BUN Creatinine Ratio 21.6 (10-20); Bilirubin,Total 0.5 mg/dl (0.2-1.0); Calcium 9.3 mg/dl (8.5-10.1); Creatinine Clr Calc Pharmacy 33.4 ml/min; Est GFR (African American) 53.8 ml/min; Est GFR (Non-African American) 46.4 ml/min; Globulin 3.1 gm/dl (2.5-4.0); Potassium 3.9 mmol/L (3.5-5.1); Total Protein 7.1 gm/dl (6.0-8.3)
--- NOTE | 2021-10-31 19:45 | Ultrasound Report ---
US arterial duplex left upper extremity HISTORY: left arm pain COMPARISON STUDY: None. FINDINGS: The left common carotid, vertebral, subclavian, axillary, brachial, and ulnar arteries appe ar widely patent. The majority of the mid to distal left radial artery appears occluded with only tra ce flow identified. This suggests an acute occlusion. IMPRESSION: The majority of the mid to distal left radial artery appears occluded with only trace flow identified . This suggests an acute occlusion ACT 112: Negative or not required by law. Electronically signed by: Eddie Reyes M.D. 10/31/2021 7:44 PM
[2021-10-31] MEDS ORDERED: OPTIRAY 320 100ml IV ONE (20:37)
--- NOTE | 2021-10-31 20:57 | CT Scan Report ---
ABDOMEN AND PELVIS CT WITH IV CONTRAST CT DOSE: 257.71 mGy.cm HISTORY: post op generalized abdominal pain. Hematuria TECHNIQUE: Multiaxial CT images of the abdomen and pelvis were performed following the use of intrave nous contrast. A dose lowering technique was utilized adhering to the principles of ALARA. COMPARISON STUDY: Abdomen and pelvis CT 04/05/2021. FINDINGS: There is a small cluster of nodules within the base of the right lower lobe with the larges t measuring 6 mm. These are new from the prior study and favor tree-in-bud nodules. Emphysema again n oted at the lung bases. There is a single punctate focus of extraluminal gas within the mid subdiaphr agmatic space on image 58. This is likely due to the recent postoperative change. Trace ascites seen within the perihepatic and deep pelvic locations. No pneumatosis. There is subcutaneous and emphysema seen within the anterior abdominal wall. This is likely due to the recent postoperative change. No s uspicious lytic or blastic osseous lesions. Partially visualized mitral valve prosthesis. Mild thicke kristine of the gastric antrum. This could be due to underdistention. No evidence for bowel obstruction. Normal appendix. Rectosigmoid anastomotic suture is noted. A few colonic diverticula. No evidence for acute diverticulitis. Moderate well-formed stool within the colon. The main portal vein is patent. M ild central intrahepatic bile duct dilatation is noted. Normal caliber common bile duct. There are 2 subcentimeter hypodense lesions within the liver. These are technically too small to characterize but favor cysts. Mild gallbladder distention. No gallbladder wall thickening. The spleen, right adrenal gland, and pancreas are unremarkable. Mild thickening of the left adrenal gland interval left nephrec chris. Trace fluid/edema at the nephrectomy bed. No soft tissue masses or hematoma identified. No retr operitoneal lymphadenopathy. Calcified plaque within the normal caliber abdominal aorta. The bladder is decompressed by Easley catheter. There is contrast within the bladder lumen. There is a surgical dr porfirio terminating within the left mid abdomen. IMPRESSION: 1. Interval left nephrectomy. A single punctate focus of extraluminal gas within the abdomen, trace s cattered ascites, and subcutaneous emphysema within the anterior abdominal wall. These favor postoper ative change. 2. Questionable thickening of the gastric antrum which may be due to underdistention. A mild gastriti s could also a similar appearance. 3. No evidence for bowel obstruction. 4. Moderate well-formed stool within the colon. 5. Mild gallbladder distention. No gallbladder wall thickening. ACT 112: Negative or not required by law. Electronically signed by: Eddie Reyes M.D. 10/31/2021 8:55 PM
[2021-10-31] MEDS ORDERED: MoRPHine SULFATE 2 MG/ML CARP IV STA (21:20)
--- NOTE | 2021-10-31 21:25 | History & Physical Report ---
Date of Service October 31, 2021 Assessment & Plan (1) Radial artery occlusion, left: Plan: 61 yo female with a PMHx of HTN, depression, raynauds, IBS, MS, GERD, urothelial carcinoma of left kidney s/p resection (10/22/21) presented to ER for left distal arm pain. #Acute radial artery occlusion -presented with intermittent left distal arm pain, numbness, pallor -likely multifactorial 2/2 s/p surgery with left arterial line placement, smoker , HTN, Raynauds -US arterial duplex LUE: acute occlusion mid to distal radial artery -chronically on warfarin for mechanical valve, supratherapeutic INR 4.3 on admission -given supratherapeutic INR and presence of blood in DANIEL drain and de la o since surgery, will hold off on additional anticoagulation at this time especially since patient is stable with minimal signs of limb ischemia -will also hold warfarin at this time and recheck INR in am; per global rph calculator can consider decreasing warfarin 5-20 percent once in therapeutic range -morphine prn for pain -appreciate vascular consult -NPO at midnight -cbc am #s/p left nephrectomy 2/2 urothelial carcinoma -surgery on 10/22/2021, DANIEL drain in place with minimal serosanguineous fluid -de la o intact -bmp am -Patient is to followup with Surgery this Thursday - Dr. Rahman Urologist from [facility] #Raynauds -chronic history on no medication -started amlodipine 5mg qhs to control possible vasospasm superimposed on radial artery occlusion #Multiple Sclerosis -cont. home baclofen, gabapentin #IBS cont. home dicyclomine #GERD -cont. home lansoprazole #H/o mitral valve replacement with mechanical valve -as noted above, hold warfarin for now, recheck INR am -Goal INR 2.5 - 3.5 #Depression -cont. home mirtazapine, effexor #HTN -cont. home lisinopril -started amlodipine 5mg, as above #ADHD -Continue Home Methylphenidate 15mg po BID DVT ppx: supratherapeutic INR, holding warfarin FEN/GI: NPO @ midnight Code Status: full Dispo: med/surg (2) Hypertension: (3) Urothelial carcinoma of kidney: (4) Depression: (5) Constipation: (6) GERD (gastroesophageal reflux disease): (7) ADHD: (8) Nonrheumatic mitral (valve) prolapse: (9) Multiple sclerosis: (10) Raynauds disease: (11) Irritable bowel syndrome: History of Present Illness Chief Complaint: left arm pain Primary Care Provider: Rylie Richardson DO 61 yo female with a PMHx of HTN, depression, raynauds, IBS, MS, GERD, urothelial carcinoma of left kidney s/p resection (10/22/21) presented to ER for left distal arm pain. 1-2 after surgery started developing this intermittent excruciating left distal arm pain which waxes and wanes. Pain episodes can last hours at a time with associated hand pallor and numbness with interval improvement in between episodes. At the time of surgery, she did have an arterial line placed in the left arm. She also had a DANIEL drain and de la o placed which has been producing red tinged fluid since procedure. At the moment she states she is doing better than earlier today in terms of her arm pain. Has had no symptoms on right arm. Continued abdominal pain and some nausea s/p surgery. 1L bolus NSS and morphine given in ED. Allergies Allergy/AdvReac Type Severity Reaction Status Date / Time azithromycin [From Zithromax] AdvReac Mild Gastrointestinal Verified 10/31/21 16:15 Upset Home Medications Medication Instructions Recorded Confirmed Type mirtazapine 15 mg tablet 15 mg PO HS 11/16/18 10/31/21 History venlafaxine 150 mg 300 mg PO QAM 11/16/18 10/31/21 History capsule,extended release 24 hr mupirocin 2 % topical ointment 1 appln TOP BID PRN 03/15/20 10/31/21 History methylphenidate HCl 10 mg 15 mg PO BID tab 05/24/20 10/31/21 History tablet,extended release Donut Pillow #1 ea 09/25/20 10/31/21 Rx gabapentin 300 mg capsule 300 mg PO HS #90 cap 11/26/20 10/31/21 Rx lansoprazole 30 mg capsule,delayed 30 mg PO QPM 02/22/21 10/31/21 History release polyethylene glycol 3350 17 17 g PO QPM PRN 02/22/21 10/31/21 History gram/dose oral powder (Miralax) dicyclomine 10 mg capsule 10 mg PO QID PRN 06/05/21 10/31/21 History fluticasone propionate 50 2 spray INTRANASAL BID 06/05/21 10/31/21 History mcg/actuation nasal spray,suspension gabapentin 100 mg capsule 100 mg PO BID #60 cap 06/10/21 10/31/21 Rx baclofen 10 mg tablet 10 mg PO BID PRN #60 tab 10/15/21 10/31/21 Rx lisinopril 5 mg tablet 5 mg PO DAILY #30 tab 10/21/21 10/31/21 Rx warfarin 4 mg tablet (Jantoven) 4 mg PO 4XWK 10/31/21 10/31/21 History warfarin 4 mg tablet (Jantoven) 6 mg PO 3XWK 10/31/21 10/31/21 History Past Med/Surg History Medical History ADHD Anemia Aneurysm Anxiety and depression Cerebral aneurysm Cervical radiculopathy Chronic pain syndrome COPD (chronic obstructive pulmonary disease) Eating disorder Fibromyalgia Gastric ulcer GERD (gastroesophageal reflux disease) Hiatal hernia History of breast cancer Hypertension Hyperthyroidism Irritable bowel syndrome Multiple sclerosis Nonrheumatic mitral (valve) prolapse Osteoporosis Raynauds disease Spinal stenosis Thyroid nodule Surgical History H/O mitral valve replacement with mechanical valve History of cardiac cath History of section History of esophagogastroduodenoscopy (EGD) History of heart surgery History of lumpectomy of left breast History of nasal polypectomy History of open reduction and internal fixation (ORIF) procedure History of rectal surgery (10/2020) History of tonsillectomy History of tooth extraction History of total mastectomy of left breast Status post open reduction and internal fixation (ORIF) of fracture Family History Father Alcohol abuse Lung cancer Mother Anxiety Depression Breast cancer Brother Hyperthyroidism Other No family history of adverse response to anesthesia Denies family history of Ovarian cancer Prostate cancer Myocardial infarction Colorectal cancer Social History Smoking Status: Unknown if ever smoked Tobacco Type: Cigarettes packs per day: 0.5; Cigarettes Per Day: 10 cigs/day; Second Hand Exposure: Yes (Father smoked); Hx Alcohol Use: Yes (Rare) Alcohol type: other Hx Substance Use: No Preferred Language: Polish Communication Ability: Effective Visual Impairment: No Limitations Hearing Ability: Normal Emergency Room Clinician Required: No Beliefs That Will Affect Care: None marital status: Current Living Situation: Family Current Living Situation Comment: Lives w/ daughter current occupational status: disabled Feels Safe at Home: Yes Childhood Exposure to Second-Hand Smoke: Yes caffeine: Yes (COFFEE) during the past year weight has: remained stable Dental Care, Regularly: Yes Physical Activity Frequency: 1-2 Times per Week Physical Activity Frequency Comment: WALKING Seatbelt Use: always Sunscreen Use: Yes Assistive Devices: Contacts, Denture - Upper and Denture - Lower Review of Systems Review of Systems: All systems reviewed & are unremarkable except as noted in HPI & below Constitutional: +chills, +fatigue. denies fevers. HEENT: denies congestion, sore throat CV: denies chest pain, palpitations Resp: denies shortness of breath, cough GI: +abdominal pain, +nausea, +mild constipation, +decreased appetite. denies vomiting, diarrhea : +de la o in place. denies pain with urination Musculoskeletal: denies recent injury Physical Exam Physical Exam: Constitutional: sitting upright in bed, mild acute distress, pleasant to speak with, cachectic. Vitals as above. HEENT: No scleral injection or discharge. Moist mucous membranes.Clear oropharynx without exudate. Neck: Supple without lymphadenopathy or thyromegaly. Trachea midline. Lungs: Clear to auscultation bilaterally with good effort. Cardiac: Regular rate and rhythm. No murmurs.2+ pitting edema bilaterally. LE pulses present and full. RUE radial and ulnar pulses 2+. LUE radial pulse not present but ulnar pulse present and full. Sluggish capillary refill bilaterally but equal. Abdomen: Bowel sounds present. Soft, nondistended.Diffuse tenderness w/o guarding. Bandages over DANIEL drain site without obvious signs of infection. DANIEL drain with ~5cc serosanguineous fluid. MSK: Extremities motor strength 5/5. Good unit secretary strength bilaterally. Skin: Mild cyanosis bilateral digits mildly cool to touch with minimal pallor. : de la o in place bag with dark yellow urine Neurologic: Grossly intact cranial nerves. PERRL. Results & Data Results & Data ([facility]) Vital Signs (Past 12 Hours) Vital Signs Temp Pulse Pulse Resp BP BP Pulse Ox 10/31/21 19:00 37.1 C 61 18 133/87 100 10/31/21 17:53 98 10/31/21 17:41 70 16 139/89 99 10/31/21 17:30 36.3 C L 87 16 142/93 H 96 Laboratory Results Laboratory Results WBC 5.07 K/uL (4.8-10.8) 10/31/21 18:15 RBC 3.26 M/uL (4.2-5.4) L 10/31/21 18:15 Hgb 10.4 g/dL (12.0-16.0) L 10/31/21 18:15 Hct 31.7 % (37-47) L 10/31/21 18:15 MCV 97.2 fL (80-100) 10/31/21 18:15 MCH 31.9 pg (25-34) 10/31/21 18:15 MCHC 32.8 g/dL (32-36) 10/31/21 18:15 RDW Std Deviation 49.9 fL (36.4-46.3) H 10/31/21 18:15 RDW Coeff of Joseph 14.4 % (11.5-14.5) 10/31/21 18:15 Plt Count 218 K/uL (130-400) 10/31/21 18:15 MPV 10.3 fL (7.4-10.4) 10/31/21 18:15 Immature Gran % (Auto) 0.2 % 10/31/21 18:15 Neut % (Auto) 66.8 % 10/31/21 18:15 Lymph % (Auto) 17.0 % 10/31/21 18:15 Liberty % (Auto) 9.3 % 10/31/21 18:15 Eos % (Auto) 6.7 % 10/31/21 18:15 Baso % (Auto) 0.0 % 10/31/21 18:15 Neut # (Auto) 3.39 K/uL (1.4-6.5) 10/31/21 18:15 Lymph # (Auto) 0.86 K/uL (1.2-3.4) L 10/31/21 18:15 Liberty # (Auto) 0.47 K/uL (0.11-0.59) 10/31/21 18:15 Eos # (Auto) 0.34 K/uL (0-0.5) 10/31/21 18:15 Baso # (Auto) 0.00 K/uL (0-0.2) 10/31/21 18:15 Immature Gran # (Auto) 0.01 K/uL (0.00-0.02) 10/31/21 18:15 PT 42.5 Seconds (9.0-12.0) H 10/31/21 18:15 INR 4.3 (0.9-1.1) H 10/31/21 18:15 Sodium 140 mmol/L (136-145) 10/31/21 18:15 Potassium 3.9 mmol/L (3.5-5.1) 10/31/21 18:15 Chloride 104 mmol/L (98-107) 10/31/21 18:15 Carbon Dioxide 29 mmol/L (21-32) 10/31/21 18:15 Anion Gap 7 (3-11) 10/31/21 18:15 BUN 27 mg/dl (6-23) H 10/31/21 18:15 Creatinine 1.25 mg/dl (0.6-1.2) H 10/31/21 18:15 Est Cr Clr Drug Dosing 33.4 ml/min 10/31/21 18:15 Est GFR ( Amer) 53.8 ml/min 10/31/21 18:15 Est GFR (Non-Af Amer) 46.4 ml/min 10/31/21 18:15 BUN/Creatinine Ratio 21.6 (10-20) H 10/31/21 18:15 Glucose 84 mg/dl (70-99(Fasting)) 10/31/21 18:15 Calcium 9.3 mg/dl (8.5-10.1) 10/31/21 18:15 Total Bilirubin 0.5 mg/dl (0.2-1.0) 10/31/21 18:15 AST 38 U/L (13-39) 10/31/21 18:15 ALT 40 U/L (7-52) 10/31/21 18:15 Alkaline Phosphatase 93 U/L (34-104) 10/31/21 18:15 Total Protein 7.1 gm/dl (6.0-8.3) 10/31/21 18:15 Albumin 4.0 gm/dl (3.4-5.0) 10/31/21 18:15 Globulin 3.1 gm/dl (2.5-4.0) 10/31/21 18:15 Albumin/Globulin Ratio 1.3 (0.9-2) 10/31/21 18:15 Lipase 135 U/L (11-82) H 10/31/21 18:15 Impressions Duplex Scan Upper Extremity Artery 10/31/21 17:53 US arterial duplex left upper extremity HISTORY: left arm pain COMPARISON STUDY: None. FINDINGS: The left common carotid, vertebral, subclavian, axillary, brachial, and ulnar arteries appear widely patent. The majority of the mid to distal left radial artery appears occluded with only trace flow identified. This suggests an acute occlusion. IMPRESSION: The majority of the mid to distal left radial artery appears occluded with only trace flow identified. This suggests an acute occlusion ACT 112: Negative or not required by law. Electronically signed by: Eddie Reyes M.D. 10/31/2021 7:44 PM Abdomen/Pelvis CT 10/31/21 19:[address] WITH IV CONTRAST CT DOSE: 257.71 mGy.cm HISTORY: post op generalized abdominal pain. Hematuria TECHNIQUE: Multiaxial CT images of the abdomen and pelvis were performed following the use of intravenous contrast. A dose lowering technique was utilized adhering to the principles of ALARA. COMPARISON STUDY: Abdomen and pelvis CT 04/05/2021. FINDINGS: There is a small cluster of nodules within the base of the right lower lobe with the largest measuring 6 mm. These are new from the prior study and favor tree-in-bud nodules. Emphysema again noted at the lung bases. There is a single punctate focus of extraluminal gas within the mid subdiaphragmatic space on image 58. This is likely due to the recent postoperative change. Trace ascites seen within the perihepatic and deep pelvic locations. No pneumatosis. There is subcutaneous and emphysema seen within the anterior abdominal wall. This is likely due to the recent postoperative change. No suspicious lytic or blastic osseous lesions. Partially visualized mitral valve prosthesis. Mild thickening of the gastric antrum. This could be due to underdistention. No evidence for bowel obstruction. Normal appendix. Rectosigmoid anastomotic suture is noted. A few colonic diverticula. No evidence for acute diverticulitis. Moderate well-formed stool within the colon. The main portal vein is patent. Mild central intrahepatic bile duct dilatation is noted. Normal caliber common bile duct. There are 2 subcentimeter hypodense lesions within the liver. These are technically too small to characterize but favor cysts. Mild gallbladder distention. No gallbladder wall thickening. The spleen, right adrenal gland, and pancreas are unremarkable. Mild thickening of the left adrenal gland interval left nephrectomy. Trace fluid/edema at the nephrectomy bed. No soft tissue masses or hematoma identified. No retroperitoneal lymphadenopathy. Calcified plaque within the normal caliber abdominal aorta. The bladder is decompressed by De La O catheter. There is contrast within the bladder lumen. There is a surgical drain terminating within the left mid abdomen. IMPRESSION: 1. Interval left nephrectomy. A single punctate focus of extraluminal gas within the abdomen, trace scattered ascites, and subcutaneous emphysema within the anterior abdominal wall. These favor postoperative change. 2. Questionable thickening of the gastric antrum which may be due to underdistention. A mild gastritis could also a similar appearance. 3. No evidence for bowel obstruction. 4. Moderate well-formed stool within the colon. 5. Mild gallbladder distention. No gallbladder wall thickening. ACT 112: Negative or not required by law. Electronically signed by: Eddie Reyes M.D. 10/31/2021 8:55 PM Supervising Physician Co-Signing Physician Notes Patient seen and examined, chart reviewed, case discussed with Dr. Elliott and I agree with the assessment and plan - additions made above. Patient is a 61yo female with history of IBS, FM, ADHD, recent left nephrectomy for urothelial malignancy [place] [facility] presenting with acute pain, pallor of left hand. Symptoms are intermittent, started appx 1-2 days after surgery. Patient has had similar pain in the past, although not as severe. Had left radial arterial line during her hospitalization at [facility] Imaging with suspected acute arterial thrombus. Patient is anticoagulated on Coumadin with INR of 4.3. Goal 2.5 - 3.5 for mechanical mitral valve. DANIEL drain in place with minimal serosanguinous drainage De La O in place with hematuria, dark in color On exam she is afebrile, HD stable, NAD. Resting comfortably HEENT - NC/AT, PERRL, MMM, Neck supple Heart - +S1/S2, regular, no m/r/g Lungs - CTA, no rales/rhonchi/wheezes Abd - DANIEL drain in place with minimal serosanguinous output, surgical port sites with some scabbing - no bleeding, erythema, drainage or dehiscence De La O in place with leg bag - dark urine in bag Patient with palpable pulses in bilateral LE. Dusky colored toes, nontender. No ulceration or lesions. Hands with dusky coloration of fingertips and nailbeds. LUE with bruising at site of radial artery, tenderness to palpation, palpable pulse at distal portion of radial artery, weakly palpable ulnar pulse, RUE with palpable pulses, to ulceration or skin lesions. Sensation, mobility intact Labs and images reviewed. Assessment/Plan -Radial artery partial occlusion - at site of prior radial A-line. Patient with history of Raynauds, limb discomfort in the past. Presently without pain. Pulses are palpable. I am hesitant to initiate Heparin at this time given the fact that she is on Coumadin with supratherapeutic INR, still with serosanguinous output from DANIEL from recent nephrectomy as well as hematuria. Patient must remain on Coumadin for mechanical mitral valve. Her limb does not appear to be acutely ischemic at this time - warm, pain has resolved, palpable distal pulses, sensation/mobility intact Hold Coumadin Repeat INR in AM Vascular Surgery consultation appreciated Will Start Amlodipine 5mg po now and daily for possible vasospasm. Consider topical nitrates for Raynauds Continue home medications for IBS, ADHD, FM as above Vascular surgery consultation appreciated. Resident Activity Tracking Resident Involvement: Resident Care Provided Care Provided: Adult Hospital Medicine (1) Depression Depression Type: other depression Qualified Code(s): F32.89 - Other specified depressive episodes (2) Irritable bowel syndrome Irritable bowel syndrome type: unspecified Qualified Code(s): K58.9 - Irritable bowel syndrome without diarrhea
[2021-10-31] MEDS ORDERED: MIRTAZAPINE TAB 15 MG TAB PO ONE (23:12)
[2021-10-31] MEDS ORDERED: amLODIPine BESYLATE 5 MG TAB PO ONE (23:12)
[2021-10-31] MEDS ORDERED: GABAPENTIN 300 MG CAP PO STA (23:12)
[2021-10-31] MEDS ORDERED: BACLOFEN 10 MG TAB PO ONE (23:13)
[2021-10-31] MEDS ORDERED: METHYLPHENIDATE HCL 5 MG TABLET PO STA (23:39)
--- NOTE | 2021-10-31 23:41 | Billing Data ---
Date of Service October 31, 2021 Coding Level of Care Code 91086 Initial Inpt Care Lvl 3
[2021-10-31 23:52] LABS: Appearance Urine Clear (Clear); Bacteria Urine Automated 4+ (Negative); Bilirubin Urine Negative (Negative); Blood Urine 3+ (Negative); Color Urine Orange; Epithelial Cell Urine Auto 0-5 /lpf (0-5); Glucose Urine UA Negative (Negative); Ketones Urine Negative (Negative); Leukocyte Esterase Urine 2+ (Negative); Nitrite Urine Positive (Negative); RBC Urine Automated >30 /hpf (0-4); Specific Gravity Urine 1.025 (1.000-1.030); Urobilinogen Urine Negative (Negative); WBC Urine Automated >30 /hpf (0-5)
[2021-10-31 23:54] LABS: Protein Urine 1+ (Negative)
[2021-11-01] MEDS ORDERED: DICYCLOMINE HCL 10 MG CAP PO PRN (02:03)
[2021-11-01] MEDS ORDERED: ONDANSETRON INJ 2 MG/ML 2 ML VIAL IV PRN (02:03)
[2021-11-01] MEDS ORDERED: POLYETHYLENE (MIRALAX) 17 GM PACK PO PRN (02:03)
[2021-11-01] MEDS ORDERED: MoRPHine SULFATE 2 MG/ML CARP IV PRN ×3 (02:03→10:00)
[2021-11-01] MEDS ORDERED: ACETAMINOPHEN 325 MG TAB PO PRN (02:03)
[2021-11-01 08:10] LABS: Basophils # (auto) 0.01 K/uL (0-0.2); Basophils % (auto) 0.2 %; Eosinophils # (auto) 0.51 K/uL (0-0.5); Eosinophils % (auto) 8.7 %; Hematocrit (blood only) 32.7 % (37-47); Hemoglobin 10.8 g/dL (12.0-16.0); Immature Granulocytes # (auto) 0.01 K/uL (0.00-0.02); Immature Granulocytes % (auto) 0.2 %; Lymphocytes # (auto) 0.83 K/uL (1.2-3.4); Lymphocytes % (auto) 14.2 %; Mean Platelet Volume 10.2 fL (7.4-10.4); Monocytes # (auto) 0.61 K/uL (0.11-0.59); Monocytes % (auto) 10.4 %; Neutrophils # (auto) 3.87 K/uL (1.4-6.5); Neutrophils % (auto) 66.3 %; Platelet Count 235 K/uL (130-400); RDW Coefficient of Variation 14.6 % (11.5-14.5); RDW Standard Deviation 51.1 fL (36.4-46.3); Red Blood Count 3.37 M/uL (4.2-5.4); White Blood Count 5.84 K/uL (4.8-10.8)
[2021-11-01] MEDS: METHYLPHENIDATE HCL 5 MG TABLET PO SCH ×2 (08:13→19:55)
[2021-11-01] MEDS: lisinopril 5 MG TAB PO SCH (08:13)
[2021-11-01] MEDS: VENLAFAXINE HCL XR 150 MG CAPXR PO SCH (08:13)
[2021-11-01] MEDS: GABAPENTIN 100 MG CAP PO SCH ×2 (08:14→14:22)
[2021-11-01 08:30] LABS: INR 3.6 (0.9-1.1); Prothrombin Time 35.9 Seconds (9.0-12.0)
[2021-11-01 08:33] LABS: BUN Creatinine Ratio 17.2 (10-20); Calcium 8.6 mg/dl (8.5-10.1); Creatinine Clr Calc Pharmacy 35.8 ml/min; Est GFR (African American) 58.9 ml/min; Est GFR (Non-African American) 50.8 ml/min
[2021-11-01] MEDS ORDERED: BACLOFEN 10 MG TAB PO PRN (09:00)
--- NOTE | 2021-11-01 09:22 | Consultation ---
Date of Consultation November 01, 2021 Assessment & Plan (1) Radial artery occlusion, left: Pt with L radial art occlusion, possibly related to art line from recent procedure. Sx are intermittent and not present at time of exam, which is essentially normal. CTA forearm and hand ordered by Dr Edmonds. Will await these images before making further recommendations. History of Present Illness Reason for Consultation: L radial art occlusion Attending Physician: Delfin Banks MD History of Present Illness 61 yo f with hx of MS, IBS, raynaud's, osteoporosis, COPD, anxiety/depression, mitral valve prolapse s/p mechanical valve replacement on coumadin with goal INR 2.5-3.5, GERD, fibromyalgia, hyperthyroidism, anemia, breast ca, aortic insufficiency, HTN, renal ca, severely underweight, admitted with L radial art occlusion, seen in consultation today for same. Pt was admitted to [facility] for nephrectomy on 10/22, then was d/c home on 10/26. Pt states she began having intermittent pain, pallor, weakness, numbness of L hand/fingers shortly after arriving home. Pt states the sx last about 2 hrs, then resolve, only to occur a few hrs later. Denies sx currently. Admits bruising to L forearm since her procedure. Pt admits fatigue, and incisional pain since her procedure, as well as chronic CASILLAS, neck, back pain. Denies fever, chest pain, SOB, N/V, rest pain, claudication, other complaints. Arterial US demonstrates L radial art occlusion. Allergies Allergy/AdvReac Type Severity Reaction Status Date / Time azithromycin [From Zithromax] AdvReac Mild Gastrointestinal Verified 10/31/21 16:15 Upset Home Medications Medication Instructions Recorded Confirmed Type mirtazapine 15 mg tablet 15 mg PO HS 11/16/18 10/31/21 History venlafaxine 150 mg 300 mg PO QAM 11/16/18 10/31/21 History capsule,extended release 24 hr mupirocin 2 % topical ointment 1 appln TOP BID PRN 03/15/20 10/31/21 History methylphenidate HCl 10 mg 15 mg PO BID tab 05/24/20 10/31/21 History tablet,extended release Donut Pillow #1 ea 09/25/20 10/31/21 Rx gabapentin 300 mg capsule 300 mg PO HS #90 cap 11/26/20 10/31/21 Rx lansoprazole 30 mg capsule,delayed 30 mg PO QPM 02/22/21 10/31/21 History release polyethylene glycol 3350 17 17 g PO QPM PRN 02/22/21 10/31/21 History gram/dose oral powder (Miralax) dicyclomine 10 mg capsule 10 mg PO QID PRN 06/05/21 10/31/21 History fluticasone propionate 50 2 spray INTRANASAL BID 06/05/21 10/31/21 History mcg/actuation nasal spray,suspension gabapentin 100 mg capsule 100 mg PO BID #60 cap 06/10/21 10/31/21 Rx baclofen 10 mg tablet 10 mg PO BID PRN #60 tab 10/15/21 10/31/21 Rx lisinopril 5 mg tablet 5 mg PO DAILY #30 tab 10/21/21 10/31/21 Rx warfarin 4 mg tablet (Jantoven) 4 mg PO 4XWK 10/31/21 10/31/21 History warfarin 4 mg tablet (Jantoven) 6 mg PO 3XWK 10/31/21 10/31/21 History Patient History Medical History ADHD Anemia Gets iron infusions Aneurysm Small aneurysmal dilatation in the basilar tip per remote neurology records, follows with [facility] neurology (Dr. Ramachandran) Anxiety and depression Cerebral aneurysm Under observation Cervical radiculopathy Pinched nerve- gets injection Chronic pain syndrome COPD (chronic obstructive pulmonary disease) Eating disorder Fibromyalgia Gastric ulcer Hx GERD (gastroesophageal reflux disease) Hiatal hernia History of breast cancer 2010 Left breast; treated surgically Hypertension Hyperthyroidism Irritable bowel syndrome Multiple sclerosis Dx 1992- symptoms weakness left side, balance issues "Probably benign type, has been doing well without disease modifying therapy for over 20 years" per neurology office visit 04/23/21 Nonrheumatic mitral (valve) prolapse 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 (2015), follows with [facility] cardiology Osteoporosis Raynauds disease Spinal stenosis Thyroid nodule Surgical History H/O mitral valve replacement with mechanical valve History of cardiac cath x2 (last 2014 > no stents) History of section History of esophagogastroduodenoscopy (EGD) EGD (03/01/21): MAC at [facility] History of heart surgery Resection of myxoma from mitral valve and cords w/ reconstruction of mitral valve 2001 History of lumpectomy of left breast History of nasal polypectomy History of open reduction and internal fixation (ORIF) procedure right wrist--hardware in place History of rectal surgery (10/2020) REPAIR PROLAPSE 10/2020 [facility] History of tonsillectomy History of tooth extraction History of total mastectomy of left breast 2012 > Pt denies limb restrictions Status post open reduction and internal fixation (ORIF) of fracture R elbow Subsequent surgery performed to fix screws 09/10/20 Family History Father Alcohol abuse Lung cancer Mother Anxiety Depression Breast cancer Brother Hyperthyroidism Other No family history of adverse response to anesthesia Denies family history of Ovarian cancer Prostate cancer Myocardial infarction Colorectal cancer Social History Smoking Status: Former smoker Tobacco Type: Cigarettes packs per day: 0.5; Cigarettes Per Day: 10 cigs/day; Second Hand Exposure: Yes; Hx Alcohol Use: No Hx Substance Use: No Preferred Language: Pashto Communication Ability: Effective Visual Impairment: No Limitations Hearing Ability: Normal [employer] Required: No Beliefs That Will Affect Care: None marital status: Current Living Situation: Alone Current Living Situation Comment: Lives w/ daughter current occupational status: disabled Feels Safe at Home: Yes Childhood Exposure to Second-Hand Smoke: Yes caffeine: Yes (COFFEE) during the past year weight has: remained stable Dental Care, Regularly: Yes Physical Activity Frequency: 1-2 Times per Week Physical Activity Frequency Comment: WALKING Seatbelt Use: always Sunscreen Use: Yes Assistive Devices: Walker Review of Systems Review of Systems: All systems reviewed & are unremarkable except as noted in HPI & below Physical Exam Constitutional: well developed, + thin, + frail appearing, + malnourished and + underweight ENMT: Ears: no hearing impairment Neck: trachea midline Respiratory: normal respiratory effort, lungs clear to auscultation Auscultation: + diminished lung sounds Cardiovascular: Rate/Rhythm: regular rate and regular rhythm Vessels: femoral pulses present, posterior tibial pulses present (+2), dorsalis pedis pulses present (+2), brachial pulses present and radial pulses present (+2 RUE, +1 LUE); + abnormal peripheral pulses Extremities: normal capillary refill (LUE 4 sec, RUE 3 sec) L forearm with old ecchymosis noted. Good palmar arch signals. Fingers warm and pink Gastrointestinal (Abdomen): Inspection/Auscultation: normal bowel sounds and + abdominal surgical incision (dressings in place); abdomen not distended Percussion/Palpation: abdomen soft Musculoskeletal: no cyanosis or clubbing, extremities motor strength 5/5 Skin: no rashes, warm and dry Psychiatric: A+Ox3, euthymic affect Eye Contact: + fair eye contact Results & Data ([facility]) Vital Signs (Past 12 Hours) Vital Signs Temp Pulse Resp BP Pulse Ox 11/01/21 07:58 36.6 C 74 16 150/72 H 94 11/01/21 02:03 36.6 C 93 H 18 132/93 98 11/01/21 01:00 68 18 128/84 97 10/31/21 23:00 37.2 C 64 18 133/87 97
[2021-11-01] MEDS ORDERED: OPTIRAY 320 125ml IV ONE (09:23)
[2021-11-01] MEDS ORDERED: oxyCODONE HCL IR 5 MG TAB (IMMEDIATE RELEASE) PO PRN (09:59)
--- NOTE | 2021-11-01 10:01 | CT Scan Report ---
CT angio forearm LT wo/w con, CT angio hand LT wo/w con CLINICAL HISTORY: ischemic hand. Left hand pain. TECHNIQUE: Multiaxial CT images of the left forearm and hand were performed following the intravenous administration of 120 cc of Optiray 320. Maximum intensity projection images were also obtained to e valuate the major arterial structures. COMPARISON STUDY: Left arm arterial Doppler study 10/31/2021. FINDINGS: The visualized brachial artery, ulnar artery, and proximal radial artery are patent. Focal abrupt cut off within the mid to distal radial artery consistent with an occlusion. This measures flex roximately 4 cm in length. This is best seen on sagittal MIP sequences image 10 of 59. However, there is distal reconstitution at the level of the distal radius. The palmar arches appear intact. The marco antonio luation of the digital arteries is essentially nondiagnostic due to patient positioning and the timin g of contrast. IMPRESSION: 1. Focal abrupt cut off within the mid to distal radial artery consistent with an occlusion which lucina sures approximately 4 cm in length. There is distal reconstitution of the radial artery at the level of the distal radius. 2. The ulnar artery is patent. 3. Evaluation of the digital arteries is essentially nondiagnostic due to patient positioning in the timing of contrast. ACT 112: Negative or not required by law. Electronically signed by: Eddie Reyes M.D. 11/01/2021 9:58 AM
[2021-11-01] MEDS: oxyCODONE HCL IR 5 MG TAB (IMMEDIATE RELEASE) PO PRN ×2 (10:33→22:00)
--- NOTE | 2021-11-01 11:30 | Communication Note ---
Date of Service: November 01, [address] angiogram of her forearm and hand were reviewed. Other hand was in the flexed position and made this an suboptimal study I believe that the arches are patent. The distal radial artery beyond the short occlusion filled rapidly and could be seen going onto the hand. Digital arteries were not visualized. Being that she has Raynaud's this could have contributed to the nonvisualization of the small arteries. At this point no intervention is needed for the radial artery. I would treat her conservatively. If her symptoms worsen we could repeat the CT angiogram with her hand and taped open position for better detail however at that point consideration for arteriography may be the best approach. This can also be done with vasodilatation using nitroglycerin to see if the arteries of the hand are in spasms. Consideration could be given to placing her on a calcium channel abhinav at this point to see if that relieves some of the discomfort in her hand. If placed on a calcium channel abhinav would use it for 3 to 4 weeks to see if there is any improvement. If no improvement then she can come off the medication. We can follow-up with her in the office in 2 weeks to see if there has been any improvement. If her hand does worsen while she is home she should call our office and we can see her sooner. Thank you very much for letting us participate in the care of this patient.
--- NOTE | 2021-11-01 11:37 | Hospitalist Progress Note ---
Date of Service November 01, 2021 Assessment & Plan (1) Radial artery occlusion, left: Plan: - likely 2/2 recent arterial line placement in the setting of Raynaud Disease and chronic tobacco use - CTA of the forearm performed and reviewed by Vascular-- appreciate assistance. --per vascular: no intervention needed at this time. Would continue her ACT and the added CCB with FU in 2 weeks (2) Supratherapeutic INR: Plan: - INR 4.3 upon presentation, down to 3.6 today. Goal= 2.5-3.5 (3) H/O mitral valve replacement with mechanical valve: Plan: - on chronic coumadin. - Coumadin held today 2/2 supratherapeutic INR. goal INR 2.5-3.5 (4) Hypertension: Plan: - continue lisinopril as prior to hospitalization - Amlodipine added (for raynaud and arterial spasm). BP current 118/75 (5) Fibromyalgia: Plan: - Continue gabapentin, baclofen and psych medications as prior to hospitalization (6) Anxiety and depression: Plan: - Continue mirtazapine and Effexor as prior to hospitalization (7) Urothelial carcinoma of kidney: Plan: - S/p left robotic radical nephroureterectomy with excision of bladder cuff + intravesicular instillation of Gemcitabine Plan: Plan of care discussed with Dr. Edmonds (vascular surgeon). No plan for intervention at this time Continue to monitor clinically. If pain adequately controlled, can proceed with discharge likely tomorrow Plan of care will be discussed with Dr. Banks. Further orders as warranted. Admission and Anticipated Discharge Date Admission Date: October 31, 2021 Subjective Patient seen on daily rounds today. Hospitalized with left arm pain and found to have a radial artery occlusion-- likely thought to be 2/2 recent procedure (and recent arterial line during this procedure). Currently, her only complaint is being hungry. She has been NPO. Seen by Vascular with further recommendations pending CTA of forearm. She has morphine ordered for pain but is requesting something different (oral) for pain. Review of Systems Review of Systems: All systems reviewed and are unremarkable except as noted in HPI and below Denies fevers, chills, headache, nasal congestion, sore throat, cough, chest pain, shortness of breath, palpitations, orthopnea, PND, abdominal pain, nausea, vomiting, diarrhea, constipation, dysuria, hematuria, frequency, back pain, joint pain or swelling, easy bruising or bleeding, skin lesions or rashes. Physical Exam Physical Exam: General: Resting comfortably in her hospital bed. She does not appear ill or toxic NAD. HEENT: Head is AT/NC. Buccal mucosa is moist and pink Neck: No JVD. Negative hepatojugular reflex Cardiac: RRR with 2/6 KALYAN Lungs: CTA without W/R/R Abdomen: Normoactive X4. Soft and nontender in all quadrants. Extremities: Bilateral upper extremities with ecchymosis (from lab draws) and Raynaud's phenomenon in the hands. Left arm with bruising where arterial line was placed. Unable to palpate her radial pulse. Neuro: A&O X4. Cranial nerves II through XII are grossly intact. No focal neuro deficits Skin: No obvious skin lesions or rashes Psych: Appropriate affect. Pleasant and cooperative Results & Data Results & [facility] ([facility]) Vital Signs (Past 12 Hours) Vital Signs Temp Pulse Resp BP Pulse Ox 11/01/21 07:58 36.6 C 74 16 150/72 H 94 11/01/21 02:03 36.6 C 93 H 18 132/93 98 11/01/21 01:00 68 18 128/84 97 Laboratory Results 11/01/21 07:31 11/01/21 07:31 PG Care Time/CCT Total # of Minutes Spent Total Time Spent with Patient: Total time spent is greater than 50% in coordination of care (as documented) at patient's floor/unit and/or counseling patient: Coding Level of Care Code 15215 Subseq Hosp Care Lvl 2 Diagnoses Radial artery occlusion, left I70.208 Supratherapeutic INR R79.1 Hypertension I10 H/O mitral valve replacement with mechanical valve Z95.2 Fibromyalgia M79.7 Anxiety and depression F41.9; F32.9 Urothelial carcinoma of kidney C64.2 Laterality: left (1) Urothelial carcinoma of kidney Laterality: left Qualified Code(s): C64.2 - Malignant neoplasm of left ki dney, except renal pelvis
[2021-11-01] MEDS ORDERED: amLODIPine BESYLATE 5 MG TAB PO SCH (21:00)
[2021-11-01] MEDS ORDERED: MIRTAZAPINE TAB 15 MG TAB PO SCH (21:00)
[2021-11-01] MEDS ORDERED: PANTOprazole 40 MG TAB PO SCH (21:00)
[2021-11-01] MEDS ORDERED: GABAPENTIN 300 MG CAP PO SCH (21:00)
[2021-11-01] MEDS ORDERED: KETOROLAC 30 MG/ML VIAL IV ONE (22:17)
[2021-11-02 06:58] LABS: Basophils # (auto) 0.01 K/uL (0-0.2); Basophils % (auto) 0.2 %; Eosinophils # (auto) 0.48 K/uL (0-0.5); Hematocrit (blood only) 34.9 % (37-47); Hemoglobin 11.3 g/dL (12.0-16.0); Immature Granulocytes # (auto) 0.01 K/uL (0.00-0.02); Immature Granulocytes % (auto) 0.2 %; Lymphocytes # (auto) 1.12 K/uL (1.2-3.4); Lymphocytes % (auto) 25.6 %; Mean Corpuscular Hemoglobin 32.2 pg (25-34); Mean Corpuscular Hgb Conc 32.4 g/dL (32-36); Mean Corpuscular Volume 99.4 fL (80-100); Mean Platelet Volume 10.1 fL (7.4-10.4); Monocytes # (auto) 0.57 K/uL (0.11-0.59); Neutrophils # (auto) 2.19 K/uL (1.4-6.5); Platelet Count 253 K/uL (130-400); RDW Coefficient of Variation 14.8 % (11.5-14.5); Red Blood Count 3.51 M/uL (4.2-5.4); White Blood Count 4.38 K/uL (4.8-10.8)
[2021-11-02 07:07] LABS: INR 2.6 (0.9-1.1); Prothrombin Time 26.1 Seconds (9.0-12.0)
[2021-11-02 07:20] LABS: BUN Creatinine Ratio 13.7 (10-20); Creatinine Clr Calc Pharmacy 29.9 ml/min; Est GFR (African American) 47.3 ml/min; Est GFR (Non-African American) 40.8 ml/min; Magnesium 1.7 mg/dl (1.7-2.4); Potassium 4.1 mmol/L (3.5-5.1)
[2021-11-02] MEDS ORDERED: MAGNESIUM OXIDE 400 MG TAB PO STA (07:46)
[2021-11-02] MEDS: VENLAFAXINE HCL XR 150 MG CAPXR PO SCH (08:40)
[2021-11-02] MEDS: GABAPENTIN 100 MG CAP PO SCH ×2 (08:40→13:10)
[2021-11-02] MEDS: METHYLPHENIDATE HCL 5 MG TABLET PO SCH (08:40)
[2021-11-02] MEDS: lisinopril 5 MG TAB PO SCH (08:40)
[2021-11-02] MEDS ORDERED: CEFDINIR 300 MG CAP PO STA (10:16)
[2021-11-02] MEDS: oxyCODONE HCL IR 5 MG TAB (IMMEDIATE RELEASE) PO PRN (13:09)
--- NOTE | 2021-11-02 13:28 | Discharge Summary ---
Date of Service November 02, 2021 Admission HPI Per Admitting Provider 61 yo female with a PMHx of HTN, depression, raynauds, IBS, MS, GERD, urothelial carcinoma of left kidney s/p resection (10/22/21) presented to ER for left distal arm pain. 1-2 after surgery started developing this intermittent excruciating left distal arm pain which waxes and wanes. Pain episodes can last hours at a time with associated hand pallor and numbness with interval improvement in between episodes. At the time of surgery, she did have an arterial line placed in the left arm. She also had a DANIEL drain and de la o placed which has been producing red tinged fluid since procedure. At the moment she states she is doing better than earlier today in terms of her arm pain. Has had no symptoms on right arm. Continued abdominal pain and some nausea s/p surgery. 1L bolus NSS and morphine given in ED. Principal Diagnosis 1. Left Radial Artery Occlusion 2. UTI- E.Coli 3. Chronic Tobacco Abuse 4. Supratherapeutic INR- resolved Discharge Exam General: Resting comfortably in her hospital bed. She does not appear ill or toxic NAD. HEENT: Head is AT/NC. Buccal mucosa is moist and pink Neck: No JVD. Negative hepatojugular reflex Cardiac: RRR with 2/6 KALYAN Lungs: CTA without W/R/R Abdomen: Normoactive X4. Soft and nontender in all quadrants. Extremities: Bilateral upper extremities with ecchymosis (from lab draws) and Raynaud's phenomenon in the hands. Left arm with bruising where arterial line was placed. Radial pulse in the left upper extremity is distant but palpable today (which is an improvement compared to yesterday) Neuro: A&O X4. Cranial nerves II through XII are grossly intact. No focal neuro deficits Skin: No obvious skin lesions or rashes Psych: Appropriate affect. Pleasant and cooperative Discharge Data Allergies Allergy/AdvReac Type Severity Reaction Status Date / Time azithromycin [From Zithromax] AdvReac Mild Gastrointestinal Verified 10/31/21 16:15 Upset Consultations 10/31/21 21:20 ED Decision to Admit Stat 11/01/21 02:03 Consult Vascular Surgery Routine Date of Service: November 01, [address] angiogram of her forearm and hand were reviewed. Other hand was in the flexed position and made this an suboptimal study I believe that the arches are patent. The distal radial artery beyond the short occlusion filled rapidly and could be seen going onto the hand. Digital arteries were not visualized. Being that she has Raynaud's this could have contributed to the nonvisualization of the small arteries. At this point no intervention is needed for the radial artery. I would treat her conservatively. If her symptoms worsen we could repeat the CT angiogram with her hand and taped open position for better detail however at that point consideration for arteriography may be the best approach. This can also be done with vasodilatation using nitroglycerin to see if the arteries of the hand are in spasms. Consideration could be given to placing her on a calcium channel abhinav at this point to see if that relieves some of the discomfort in her hand. If placed on a calcium channel abhinav would use it for 3 to 4 weeks to see if there is any improvement. If no improvement then she can come off the medication. We can follow-up with her in the office in 2 weeks to see if there has been any improvement. If her hand does worsen while she is home she should call our office and we can see her sooner. Thank you very much for letting us participate in the care of this patient. 11/02/21 10:14 Consult KENDALL[facility] web production assistant Routine Ordered Studies 10/31/21 17:53 US arterial duplex UE LT Stat IMPRESSION: The majority of the mid to distal left radial artery appears occluded with only trace flow identified. This suggests an acute occlusion 10/31/21 19:47 CT abd pelvis IV con only Stat IMPRESSION: 1. Interval left nephrectomy. A single punctate focus of extraluminal gas within the abdomen, trace scattered ascites, and subcutaneous emphysema within the anterior abdominal wall. These favor postoperative change. 2. Questionable thickening of the gastric antrum which may be due to underdistention. A mild gastritis could also a similar appearance. 3. No evidence for bowel obstruction. 4. Moderate well-formed stool within the colon. 5. Mild gallbladder distention. No gallbladder wall thickening. 11/01/21 07:48 CT angio forearm LT wo/w con Routine CT angio hand LT wo/w con Routine IMPRESSION: 1. Focal abrupt cut off within the mid to distal radial artery consistent with an occlusion which measures approximately 4 cm in length. There is distal reconstitution of the radial artery at the level of the distal radius. 2. The ulnar artery is patent. 3. Evaluation of the digital arteries is essentially nondiagnostic due to patient positioning in the timing of contrast. Hospital Course (1) Radial artery occlusion, left: - likely 2/2 recent arterial line placement in the setting of Raynaud Disease and chronic tobacco use - CTA of the forearm performed and reviewed by Vascular-- appreciate assistance. --per vascular: no intervention needed at this time. Would continue her ACT and the added CCB with FU in 2 weeks. 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 D/C to home with with FU to see Vascular in 2 weeks. - STOP SMOKING!!! Lengthy discussion with patient regarding the importance of smoking cessation. Talked about options regarding this. Patient would like to try nicotine patch. This has been prescribed with downward titration. Behavioral modifications discussed as well as hand/oral fixation also a habit (2) Supratherapeutic INR: - INR 4.3 upon presentation-- Coumadin held - down to 2.6 today and therapeutic-- resume Coumadin tonight - Goal= 2.5-3.5 (3) UTI (urinary tract infection): - no dysuria, frequency, fevers or leukocytosis but did reports bad pain on arrival - UC= E.Coli - Rx: Cefdinir (avoiding quinolones as to not interfere much with Coumadin) x 3 days for uncomplicated UTI (4) H/O mitral valve replacement with mechanical valve: - on chronic coumadin. - Coumadin held on hospital day #1 for supratherapeutic INR but can resume today as INR within goal range - follow up INR on Thursday (patient with standing order) (5) Hypertension: - continue lisinopril as prior to hospitalization - Amlodipine added (for raynaud and arterial spasm). BP tolerating this (currently 134/87) (6) Fibromyalgia: - Continue gabapentin, baclofen and psych medications as prior to hospitalization (7) Anxiety and depression: - Continue mirtazapine and Effexor as prior to hospitalization (8) Urothelial carcinoma of kidney: - S/p left robotic radical nephroureterectomy with excision of bladder cuff + intravesicular instillation of Gemcitabine Plan of care discussed with Dr. Edmonds (vascular surgeon). No plan for intervention at this time Pain in the left arm has resolved with increased pulpable pulse. D/C to home at this time with FU to see vascular as an OP Plan of care will be discussed with and patient seen by Dr. Banks. Total Time Total Time Spent Total Time Spent (In Minutes): 45 minutes including time spent with patient, coordination of care, preparation of documentation, discussion with attending provider, Discharge Plan Discharge Items Patient Disposition: Home - Self-Care Reason For Visit: LEFT ARM PAIN Discharge Diagnosis: 1. Left Radial Artery Occlusion 2. UTI- E.Coli 3. Chronic Tobacco Abuse 4. Supratherapeutic INR- resolved Activity: Resume your previous activity Non-emergency contact: Primary Care Provider and Specialist Call non-emergency contact if: you have any medication questions Follow-up/Referrals: Rylie Richardson DO [Primary Care Provider] - Jose Manuel Edmonds MD [Physician] - ([facility] Nurse Navigator is aware of making this appointment. She will call the patient with a date and time for a follow up visit with Dr. Edmonds.) Diet: Heart Healthy Addtl Attending Provider Instructions: You presented to the hospital complaining of left arm pain and were found to have a blood clot within the artery of your left arm (felt to be secondary to the arterial line recently placed for your surgical procedure). You were seen by Dr. Edmonds (vascular surgeon) who performed additional testing and felt no additional intervention is required at this time. You were started on amlodipine which is technically a blood pressure medication but for you, it will help with the spasm of your vessels. In turn, this should help with the pain. Your INR was elevated (greater sign 6) upon presentation for which your Coumadin was held. It is 2.6 today. Resume Coumadin tonight with a follow up INR on Thursday Note that you have been started on an antibiotic as you were found to have a UTI. Take for 3 days to complete a full course-- next dose is due tonight Follow up with Dr. Edmonds (vascular surgeon) within 2 weeks. If you do not hear back from the hospital by Thursday regarding an appointment date and time, please contact us As discussed, it is imperative that you STOP SMOKING as this only causes increased injury to your blood vessels which increases the risk of spasm and clotting! We discussed many options and you are being prescribed a Nicotine patch to wean off of Nicotine over the next 2-3 months. Start with 21mg a day (for ~2-4 weeks). When ready, transition to 14mg daily (for ~2-4 weeks) and then 7mg daily (again, for 2-4 weeks) and then stop. As discussed, this will not satisfy the hand/oral fixation and addiction. As silly as it sounds, find s omething to help satisfy this addiction (a toothpick, a straw, chewing sugar free gum, sucking on a sugar free mint). Also, it is important to change up your routine. If you wake up every day, read the newspaper and smoke a cigarette-- don't expect to continue this same routine minus the cigarette as you will crave the cigarette. Return to the ED for new or worsening symptoms Pending Studies at Discharge: Yes Studies:: final sensitivities (urine culture) Stand-Alone Forms: My [facility], Smoking Cessation Medications and DC Order Prescriptions: New cefdinir 300 mg capsule 300 mg PO BID Qty: 5 RF: 0 nicotine 21-14-7 mg/24 hr patch, TD daily, sequential 1 patch topical DAILY Qty: 56 RF: 0 amlodipine [Norvasc] 5 mg Tablet 5 mg PO PM Qty: 30 RF: 0 Continued gabapentin 300 mg capsule 300 mg PO HS Qty: 90 RF: 3 gabapentin 100 mg capsule 100 mg PO BID Qty: 60 RF: 5 baclofen 10 mg tablet 10 mg PO BID PRN (Reason: muscle spasm) Qty: 60 RF: 0 lisinopril 5 mg tablet 5 mg PO DAILY Qty: 30 RF: 5 methylphenidate HCl 10 mg tablet extended release 15 mg PO BID RF: 0 (DME) Ankit Yuen See Rx Instructions .Route .MEDSUPPLY Qty: 1 RF: 0 venlafaxine 150 mg capsule,extended release 24hr 300 mg PO QAM RF: 0 mirtazapine 15 mg tablet 15 mg PO HS RF: 0 mupirocin 2 % ointment 1 appln TOP BID PRN (Reason: Rash) RF: 0 lansoprazole 30 mg capsule,delayed release(DR/EC) 30 mg PO QPM RF: 0 polyethylene glycol 3350 [Miralax] 17 gram/dose powder 17 g PO QPM PRN (Reason: Constipation) RF: 0 warfarin [Jantoven] 4 mg tablet 4 mg PO 4XWK RF: 0 warfarin [Jantoven] 4 mg tablet 6 mg PO 3XWK RF: 0 fluticasone propionate 50 mcg/actuation spray,suspension 2 spray intranasal BID RF: 0 dicyclomine 10 mg capsule 10 mg PO QID PRN (Reason: Abdominal Distention) RF: 0 Discharge Orders: Discharge Order (Routine); Ordered 11/02/21 Ordered By: Traci Haque Admission Data Admit Date/Time: 10/31/21 23:11 Attending Provider: Delfin Banks Admit Provider: Alejandro Elliott Primary Care Provider: Rylie Richardson Other Providers: Izabel Samson ; Jose Manuel Edmonds ; Neftali Grider [facility] Other Interventions: Discharge Summary Assessment (RN) Last Done: 11/02/21 11:56 Coding Level of Care Code D/C DAY MANAGEMENT >30 MINS Diagnoses Radial artery occlusion, left I70.208 Supratherapeutic INR R79.1 H/O mitral valve replacement with mechanical valve Z95.2 Hypertension I10 Fibromyalgia M79.7 Anxiety and depression F41.9; F32.9 Urothelial carcinoma of kidney C64.2 Laterality: left UTI (urinary tract infection) N39.0
== END 2021-11-02 14:45 | disposition home or self-care (01) | DRG 315 ==
LOC: ED 17:29 → SUATTDRO 23:11 → 3N 23:11